=== PATIENT | male | born 1955 | race Caucasian/White ===

== ENCOUNTER 2017-05-30 12:09 | Emergency (ER) | payer OTHER ==
[2017-05-30 12:28] VITALS: RESP 18
[2017-05-30] MEDS ORDERED: Sodium Chloride 0.9% 1,000 ML IV ONE (13:33)
[2017-05-30] MEDS ORDERED: Sodium Chloride 0.9% 1,000 ML ONE (13:43)
--- NOTE | 2017-05-30 13:46 | RAD ---
HISTORY: COMPARISON: No prior. TECHNIQUE: Chest PA and lateral FINDINGS: LINES AND TUBES: None. LUNG AND PLEURA: The lungs are hyperinflated and there is peribronchial cuffing with streaky opacities in the lungs. No focal consolidation. HEART AND MEDIASTINUM: The heart is not enlarged. The hilar and mediastinal contours are within normal limits. SKELETAL STRUCTURES: The bony structures are within normal limits for the patient's age. VISUALIZED UPPER ABDOMEN: Normal. OTHER FINDINGS: None. IMPRESSION: Findings are most compatible with reactive small airway disease/ viral bronchitis/ atypical pneumonitis. No lobar pneumonia.
--- NOTE | 2017-05-30 14:02 | C.PDOC ---
History Of Present Illness 61 y/o male brought to ED by son with complaints of generalized weakness for 1 month. [place] arrived [place] this [place] ago [place] and states he has been weak when walking, had intermittent fever and a loss of 20lbs in 5-6 months. Patient also reports chronic swelling to legs although they are not swollen at this time. Patient denies chest pain, sob, nausea, vomiting, loc or any other complaints at this time. His appetite has been normal and he has no difficulty eating or drinking. Time Seen by Provider: 05/30/17 13:23 Chief Complaint (Nursing): Weakness/Neurological Deficit History Per: Patient History/Exam Limitations: no limitations Onset/Duration Of Symptoms: Days Current Symptoms Are (Timing): Still Present Activity At Onset Of Symptoms: Walking Past Medical History Reviewed: Historical Data, Nursing Documentation, Vital Signs Vital Signs: Last Vital Signs Temp 98.1 F 05/30/17 12:23 Pulse 69 05/30/17 12:23 Resp 18 05/30/17 12:23 BP 124/75 05/30/17 12:23 Pulse Ox 98 05/30/17 14:03 - Medical History PMH: No Chronic Diseases Surgical History: No Surg Hx Family History: States: No Known Family Hx - Social History Hx Alcohol Use: No Hx Substance Use: No - Immunization History Hx Tetanus Toxoid Vaccination: No Hx Influenza Vaccination: No Hx Pneumococcal Vaccination: No Review Of Systems Constitutional: Positive for: Fever, Weakness. Negative for: Chills Cardiovascular: Negative for: Chest Pain Respiratory: Negative for: Shortness of Breath Skin: Negative for: Rash Neurological: Negative for: Numbness, Headache, Dizziness Physical Exam - Physical Exam Appears: Non-toxic, Other (Older than age stated, thin appearing) Skin: Warm, Dry, No Rash Head: Atraumatic, Normacephalic Eye(s): bilateral: Normal Inspection Oral Mucosa: Moist Neck: Supple Chest: Symmetrical Cardiovascular: Rhythm Regular Respiratory: Rales (bilateral\), No Rhonchi, No Wheezing Gastrointestinal/Abdominal: Soft, No Tenderness, No Guarding, No Rebound Extremity: No Tenderness, No Swelling, Other (venous stasis pigmentation to lower extremities ) Pulses: Left Dorsalis Pedis: Normal, Right Dorsalis Pedis: Normal Neurological/Psych: Oriented x3, Normal Speech, Normal Motor, Normal Sensation ED Course And Treatment - Laboratory Results Result Diagrams: 05/30/17 13:56 05/30/17 13:56 Lab Interpretation: Abnormal (Thrombocytopenia with elevated LFTs, Alb and Ca low) ECG: Interpreted By Me ECG Rhythm: Sinus Rhythm ECG Interpretation: Normal O2 Sat by Pulse Oximetry: 98 (RA) Pulse Ox Interpretation: Normal - Radiology CXR: Viewed By Me, Read By Radiologist CXR Interpretation: Yes: Other (Chronic interstitial linear densities c/w atypical pneumonitis) Reevaluation Time: 15:04 Reassessment Condition: Improved (after IV fluids) Disposition Counseled Patient/Family Regarding: Studies Performed, Diagnosis, Need For Followup - Disposition Referrals: [facility] [Outside] Disposition: HOME/ ROUTINE Disposition Time: 15:05 Condition: STABLE Additional Instructions: Patient will need further work-up to evaluate chronic lung disease and elevated liver enzymes. Please contact the clinic as soon as possible. Instructions: Weakness (ED) Forms: [facility] (Spanish), General Discharge Instructions - Clinical Impression Clinical Impression: Weakness, Elevated liver enzymes, Interstitial lung disease - Scribe Statement The provider has reviewed the documentation as recorded by the Scribshaunna Cornejo All medical record entries made by the Lindaibshaunna were at my direction and personally dictated by me. I have reviewed the chart and agree that the record accurately reflects my personal performance of the history, physical exam, medical decision making, and the department course for this patient. I have also personally directed, reviewed, and agree with the discharge instructions and disposition.
[2017-05-30 14:04] LABS: BASO % 0.8 % (0.0-2.0); EOS # 0.2 K/uL (0.0-0.7); EOS % 3.4 % (0.0-4.0); HEMATOCRIT 37.2 % (35.0-51.0); LYMPH # 1.7 K/uL (1.0-4.3); LYMPH % 33.3 % (20.0-40.0); MEAN CELL VOLUME 84.3 fL (80.0-94.0); MEAN CORPUSCULAR HEMOGLOBIN 28.4 pg (27.0-31.0); MEAN CORPUSCULAR HGB CONC 33.7 g/dL (33.0-37.0); MEAN PLATELET VOLUME 9.7 fL (7.2-11.7); MONO # 0.5 K/uL (0.0-0.8); NRBC % 0.1 % (0.0-2.0); RED CELL DISTRIBUTION WIDTH 13.6 % (11.5-14.5); URINE BILIRUBIN NEGATIVE (NEGATIVE); URINE BLOOD 1+ (NEGATIVE); URINE COLOR Yellow (YELLOW); URINE GLUCOSE (UA) NORMAL (Normal); URINE KETONE NEGATIVE (NEGATIVE); URINE LEUKOCYTE ESTERASE NEG Leu/uL (Negative); URINE PROTEIN NEGATIVE (NEGATIVE); URINE UROBILINOGEN NORMAL mg/dL (0.2-1.0); WBC URINE < 1 /hpf (0-5); WHITE BLOOD COUNT 5.1 K/uL (4.8-10.8)
[2017-05-30 14:11] LABS: RBC URINE 4 /hpf (0-3)
[2017-05-30 14:17] LABS: ALKALINE PHOSPHATASE 114 U/L (38-126); ALT/SGPT 117 U/L (21-72); AST/SGOT 133 U/L (17-59); BILIRUBIN,TOTAL 0.9 mg/dL (0.2-1.3); BLOOD UREA NITROGEN 10 mg/dL (9-20); CALCIUM 7.7 mg/dl (8.6-10.4); CARBON DIOXIDE 27 mmol/L (22-30); CHLORIDE 102 mmol/L (98-107); GFR AFRICAN-AMERICAN > 60; GLUCOSE,RANDOM 66 mg/dL (75-110); MAGNESIUM 1.8 mg/dL (1.6-2.3); POTASSIUM 3.6 mmol/L (3.6-5.2); SODIUM 131 mmol/L (132-148); TOTAL PROTEIN 8.1 g/dL (6.3-8.3)
[2017-05-30 14:28] LABS: ALB/GLOB RATIO 0.7 (1.0-2.1)
[2017-05-30 15:17] VITALS: BP 149/75; PULSE 65; TEMP 97.9; O2SAT 96
--- NOTE | 2017-05-31 21:51 | CARD ---
APPROVED REPORT EKG Measurement Heart [id number] <Conclusion> Normal sinus rhythm Normal ECG
== END 2017-05-30 15:15 | disposition home or self-care (01) ==
LOC: C.ER 12:09
DX: R53.1 Weakness (principal); R74.8 Abnormal levels of other serum enzymes; J84.9 Interstitial pulmonary disease, unspecified
CPT/HCPCS: 71020; 80053; 81001; 83735; 83880; 85025; 93005; 96360; 99285; J7040

== ENCOUNTER 2017-09-10 06:49 | Day surgery (SDC) | payer OTHER ==
[2017-09-10 07:09] VITALS: BMI 23.6
[2017-09-10] MEDS ORDERED: Propofol 10 mg/ml Inj (20 ML) ONE (08:03)
[2017-09-10] MEDS ORDERED: Lactated Ringer's 500 ML IV SCH (08:15)
[2017-09-10] MEDS ORDERED: Lidocaine Hydrochloride 5 ML INJ ONE (08:16)
[2017-09-10] MEDS ORDERED: Simethicone 40 mg/0.6 ml Liquid (30 ml) ONE (08:31)
[2017-09-10 09:17] VITALS: RESP 14; TEMP 97; O2SAT 100
[2017-09-10 09:19] VITALS: BP 120/77; PULSE 60
== END 2017-09-10 11:20 | disposition home or self-care (01) ==
LOC: C.ENDO 06:49
PROVIDERS: ATTEND Internal Medicine
DX: B18.2 Chronic viral hepatitis C (principal); R63.4 Abnormal weight loss; R76.11 Nonspecific reaction to tuberculin skin test without active tuberculosis; I85.00 Esophageal varices without bleeding; K25.9 Gastric ulcer, unspecified as acute or chronic, without hemorrhage or perforation; B96.81 Helicobacter pylori [H. pylori] as the cause of diseases classified elsewhere; K29.60 Other gastritis without bleeding; K55.20 Angiodysplasia of colon without hemorrhage; D12.2 Benign neoplasm of ascending colon; D12.0 Benign neoplasm of cecum; D12.4 Benign neoplasm of descending colon; D12.3 Benign neoplasm of transverse colon
CPT/HCPCS: 43239; 45388; 88305; 88313; 88342; J2704; J3010; J7120

== ENCOUNTER 2017-10-16 05:07 | Inpatient (IN) | payer OTHER ==
[2017-10-16 05:07] VITALS: BMI 23.6
[2017-10-16] MEDS ORDERED: Sodium Chloride 0.9% 1,000 ML IV ONE (05:35)
[2017-10-16] MEDS ORDERED: HYDROmorphone 1 mg/ml ISec IVP STA (05:35)
--- NOTE | 2017-10-16 05:37 | C.PDOC ---
History Of Present Illness <Marcie Hickman - Last Filed: 10/16/17 10:53> <Skyla Lara - Last Filed: 10/17/17 02:00> 62 y/o male with PMHx significant for latent tuberculosis, GERD, and microcytic anemia, presents with worsening epigastric pain over the past several days. States the pain has been much worse over past 24 hours. Denies associated vomiting or diarrhea. Feels chills and subjective fever. States he is not tolerating anything PO. (Skyla Lara) <Marcie Hickman - Last Filed: 10/16/17 10:53> History Per: Patient History/Exam Limitations: no limitations Onset/Duration Of Symptoms: Days Current Symptoms Are (Timing): Still Present <Skyla Lara - Last Filed: 10/17/17 02:00> Time Seen by Provider: 10/16/17 05:34 Chief Complaint (Nursing): Chest Pain Past Medical History Reviewed: Historical Data, Nursing Documentation, Vital Signs - Medical History PMH: GERD, Hepatitis (C) Denies: Colonic Polyps, Fractures, Seizures, TIA Other PMH: Latent tuberculosis Surgical History: No Surg Hx Denies: Endoscopy Family History: States: No Known Family Hx - Social History Hx Alcohol Use: No Hx Substance Use: No - Immunization History Hx Tetanus Toxoid Vaccination: No Hx Influenza Vaccination: No Hx Pneumococcal Vaccination: No <Skyla Lara - Last Filed: 10/17/17 02:00> Vital Signs: Last Vital Signs Temp 98 F 10/16/17 23:45 Pulse 67 10/16/17 23:45 Resp 20 10/16/17 23:45 BP 121/66 10/16/17 23:45 Pulse Ox 97 10/16/17 23:45 Review Of Systems Except As Marked, All Systems Reviewed And Found Negative. Constitutional: Positive for: Fever, Chills, Other (not tolerating solids or liquids) Gastrointestinal: Positive for: Abdominal Pain. Negative for: Vomiting, Diarrhea <Skyla Lara - Last Filed: 10/17/17 02:00> Physical Exam - Physical Exam Appears: In Acute Distress (moderate distress secondary to pain), Other ( Moaning in pain, writhing on the stretcher) Skin: Normal Color, Warm, Dry Head: Atraumatic, Normacephalic Eye(s): bilateral: Normal Inspection, PERRL, EOMI Nose: Normal Oral Mucosa: Moist Neck: Normal ROM, Supple Chest: Symmetrical Cardiovascular: Rhythm Regular, No Murmur Respiratory: Decreased Breath Sounds Gastrointestinal/Abdominal: Tenderness (cough tenderness), Guarding ( Involuntary guarding throughout abdomen), Rebound, Other (Rigid) Back: No CVA Tenderness, No Vertebral Tenderness Extremity: Bilateral: Atraumatic, Normal Color And Temperature Neurological/Psych: Oriented x3, Normal Speech <Skyla Lara - Last Filed: 10/17/17 02:00> ED Course And Treatment - Laboratory Results Result Diagrams: 10/16/17 05:41 10/16/17 05:41 <Marcie Hickman - Last Filed: 10/16/17 10:53> - Laboratory Results Result Diagrams: 10/16/17 05:41 10/16/17 05:41 ECG: Interpreted By Me, Viewed By Me ECG Rhythm: Sinus Rhythm (at 82 bpm, no ectopy, no acute ischemic changes, intervals all are wnl) O2 Sat by Pulse Oximetry: 98 (RA) Pulse Ox Interpretation: Normal <Skyla Lara - Last Filed: 10/17/17 02:00> Medical Decision Making <Marcie Hickman - Last Filed: 10/16/17 10:53> <Skyla Lara - Last Filed: 10/17/17 02:00> Medical Decision Making: Impression: Acute peritonitis Plan: * Routine labs * EKG * CT abd/pelvis * Chest X-ray * IVF hydration * Dilaudid 1 mg IV * Surgical consult (Skyla Lara) Disposition Discussed With : Trevor Harmon Doctor Will See Patient In The: Hospital Counseled Patient/Family Regarding: Studies Performed, Diagnosis - Disposition Disposition Time: 10:53 <Marcie Hickman - Last Filed: 10/16/17 10:53> <Skyla Lara - Last Filed: 10/17/17 02:00> - Disposition Disposition: HOSPITALIZED Condition: GUARDED - Clinical Impression Clinical Impression: Cholecystitis, Cirrhosis <Marcie Hickman - Last Filed: 10/16/17 10:53> - Scribe Statement The provider has reviewed the documentation as recorded by the Scribe (Capri Mendoza) <Skyla Lara - Last Filed: 10/17/17 02:00> - Scribe Statement Provider Attestation: All medical record entries made by the Scribe were at my direction and personally dictated by me. I have reviewed the chart and agree that the record accurately reflects my personal performance of the history, physical exam, medical decision making, and the department course for this patient. I have also personally directed, reviewed, and agree with the discharge instructions and disposition. (Skyla Lara) Addendum <Marcie Hickman - Last Filed: 10/16/17 10:53> <Skyla Lara - Last Filed: 10/17/17 02:00> Addendum: 10/16/17 07:34 Patient endorsed to me by Dr. Lara, patient with recent dx of hep C and remote TB? On medications for TB. Patient presents with epgastric and URQ pain. Had recent CT abdomen which showed liver cirrhosis. Patient medicated by overnight team, feeling better now. Low grade fever, no elevated WBC count, will do US to r/o galls bladder dx. (Marcie Hickman) Decision To Admit - Pt Status Changed To: Hospital Disposition Of: Inpatient - Admit Certification Admit to Inpatient:: After my assessment, the patient will require hospitalization for at least two midnights. This is because of the severity of symptoms shown, intensity of services needed, and/or the medical risk in this patient being treated as an outpatient. - InPatient: Physician Admission Certification: I certify that this patient requires 2 or more midnights of care for the following reason:: patient with acute cholecistitis, NV, pain, not tolerating PO - . Bed Request Type: Regular <Marcie Hickman - Last Filed: 10/16/17 10:53> <Skyla Lara - Last Filed: 10/17/17 02:00> - . Patient Diagnosis: Cholecystitis, Cirrhosis
[2017-10-16 05:44] LABS: BASO % 0.7 % (0.0-2.0); EOS # 0.1 K/uL (0.0-0.7); EOS % 0.8 % (0.0-4.0); HEMOGLOBIN 12.4 g/dL (12.0-18.0); MEAN CELL VOLUME 82.7 fL (80.0-94.0); MEAN CORPUSCULAR HEMOGLOBIN 28.1 pg (27.0-31.0); MEAN CORPUSCULAR HGB CONC 33.9 g/dL (33.0-37.0); MEAN PLATELET VOLUME 9.5 fL (7.2-11.7); MONO # 0.4 K/uL (0.0-0.8); MONO % 6.3 % (0.0-10.0); NEUT # 5.2 K/uL (1.8-7.0); NEUT % 77.2 % (50.0-75.0); RBC 4.43 Mil/uL (4.40-5.90); RED CELL DISTRIBUTION WIDTH 14.6 % (11.5-14.5); WHITE BLOOD COUNT 6.7 K/uL (4.8-10.8)
[2017-10-16] MEDS ORDERED: Sodium Chloride 0.9% 1,000 ML ONE (05:57)
[2017-10-16 05:59] LABS: ALB/GLOB RATIO 0.8 (1.0-2.1); ALBUMIN 3.6 g/dL (3.5-5.0); ALT/SGPT 88 U/L (21-72); AST/SGOT 132 U/L (17-59); BLOOD UREA NITROGEN 8 mg/dL (9-20); CALCIUM 8.5 mg/dl (8.6-10.4); GFR AFRICAN-AMERICAN > 60; GFR NON-AFRICAN AMERICAN > 60; LIPASE 173 U/L (23-300)
[2017-10-16] MEDS ORDERED: Iodixanol 320 MG/ML 100 ML BOTTLE IV ONE (07:34)
--- NOTE | 2017-10-16 10:00 | RAD ---
Chest x-ray single frontal view History: Sepsis. Comparison: 05/30/2017 Findings: Mild venous congestion. Left hilar prominence. Biapical pleural thickening. Tortuous aorta. Degenerative changes in the spine and shoulders. Impression: Mild venous congestion. Left hilar prominence. Biapical pleural thickening. Tortuous aorta.
[2017-10-16 10:26] LABS: URINE BILIRUBIN NEGATIVE (NEGATIVE); URINE BLOOD 1+ (NEGATIVE); URINE CLARITY Clear (Clear); URINE COLOR Yellow (YELLOW); URINE GLUCOSE (UA) NORMAL (Normal); URINE LEUKOCYTE ESTERASE NEG Leu/uL (Negative); URINE PROTEIN NEGATIVE (NEGATIVE); URINE UROBILINOGEN NORMAL mg/dL (0.2-1.0)
--- NOTE | 2017-10-16 10:35 | US ---
Right upper quadrant abdominal ultrasound History: Right upper quadrant abdominal pain. Comparison: CT dated 09/12/2017. Technique: Real-time sonography was performed through the right upper quadrant of the abdomen. Findings: Liver: 14.6 centimeters in length. Increased echogenicity of the hepatic parenchymal cortex suggestive for fatty infiltration versus hepatic parenchymal disease. Nodular and cirrhotic contour of the liver. Gallbladder: Cholelithiasis. Gallbladder wall thickening measuring up to 6.5 millimeters. Associated gallbladder wall edema. Negative sonographic Abreu's sign. Common bile duct measures up to 3.6 millimeters. Intrahepatic biliary ductal dilatation is noted. Limited visualization of the pancreas. Visualized aorta and IVC are preserved. Right kidney: 10.2 x 5.5 x 6.2 centimeters. No calculi or hydronephrosis. Impression: 1. Cholelithiasis with associated gallbladder wall thickening measuring up to 6.5 millimeters as well as gallbladder wall edema. Gallbladder calculus measures up to 1.9 centimeters. These findings may represent an acute cholecystitis. Clinical correlation and or correlation with nuclear medicine study may be helpful if clinically indicated. 2. Nodular and cirrhotic contour of the liver with associated increased echogenicity of the hepatic parenchymal cortex suggestive for fatty infiltration versus hepatic parenchymal disease. Clinical correlation. Previously noted 1 centimeter lesion in the left hepatic lobe on CT scan was not well imaged on the current study. 3. Limited visualization of the pancreas.
[2017-10-16] MEDS ORDERED: Pantoprazole 40 mg EC Tab PO SCH (14:15)
--- NOTE | 2017-10-16 14:34 | CP.PCM.HP ---
<Bisi Jackson - Last Filed: 10/16/17 14:44> History of Present Illness - History of Present Illness History of Present Illness: HPI: Patient is a 62 year old male with a past medical history of HCV with cirrhosis, and tuberculosis, who presents to the ED complaining of abdominal pain. Patient says this started last night and describes it as a constant, crampy, 10/10 pain that is generalized but worse over the right upper quadrant and flank area. Patient says he has not taken any medication for this pain and nothing seems to make it better or worse. Patient also notes feeling like he has a fever although he did not take his temperature and also complains of a burning sensation in his epigastric/low middle chest area. He also admits to generalized body aches that have been going on for months. He denies chills, night sweats, headache, sore throat, bitter taste in mouth, chest pain, SOB, palpitations, cough, n/v/d/c, dysuria, urinary frequency, calf pain, lower extremity swelling, sick contacts, recent travel, and changes in weight. PMD: [facility]: Dr. Ceballos PMH: HCV with cirrhosis, tuberculosis Meds: Vitamin B6 25 mg, Isoniazid 300 mg, Meloxicam 7.5 mg [place]eriges: NKDA PSH: denies FH: denies SH: denies tobacco, alcohol, and drug use Present on Admission - Present on Admission Any Indicators Present on Admission: No Review of Systems - Review of Systems All systems: reviewed and no additional remarkable complaints except (as per HPI ) Past Patient History - Past Medical History & Family History Past Medical History?: Yes - Past Social History Smoking Status: Never Smoked - CARDIAC Hx Heart Attack: No - PULMONARY Hx Respiratory Disorders: Yes Hx Tuberculosis: Yes - NEUROLOGICAL Hx Seizures: No Hx Transient Ischemic Attacks (TIA): No - HEMATOLOGICAL/ONCOLOGICAL Hx Blood Disorders: Yes Hx Hepatitis C: Yes - MUSCULOSKELETAL/RHEUMATOLOGICAL Hx Fractures: No - GASTROINTESTINAL Hx Gastrointestinal Disorders: No - PSYCHIATRIC Hx Substance Use: No - SURGICAL HISTORY Hx Surgeries: No - ANESTHESIA Hx Anesthesia Reactions: No Hx Malignant Hyperthermia: No Meds Allergies/Adverse Reactions: Allergies Allergy/AdvReac Type Severity Reaction Status Date / Time No Known Allergies Allergy Verified 10/16/17 05:22 Physical Exam - Constitutional Appears: Non-toxic, No Acute Distress - Head Exam Head Exam: ATRAUMATIC, NORMAL INSPECTION, NORMOCEPHALIC - Eye Exam Eye Exam: EOMI, PERRL, Scleral icterus (mild ) - ENT Exam ENT Exam: Mucous Membranes Moist - Neck Exam Neck exam: Positive for: Normal Inspection - Respiratory Exam Respiratory Exam: Clear to Auscultation Bilateral, NORMAL BREATHING PATTERN - Cardiovascular Exam Cardiovascular Exam: RRR, +S1, +S2. absent: Bradycardia, Tachycardia, Systolic Murmur - GI/Abdominal Exam GI & Abdominal Exam: Firm, Normal Bowel Sounds, Soft, Tenderness (RUQ ). absent : Distended - Extremities Exam Extremities exam: Positive for: normal inspection. Negative for: calf tenderness, pedal edema - Back Exam Back exam: NORMAL INSPECTION - Neurological Exam Neurological exam: Alert, Oriented x3 - Psychiatric Exam Psychiatric exam: Normal Affect, Normal Mood - Skin Skin Exam: Dry, Intact, Normal Color, Warm Results - Vital Signs Recent Vital Signs: Last Vital Signs Temp 98.3 F 10/16/17 13:26 Pulse 73 10/16/17 13:26 Resp 20 10/16/17 13:26 BP 114/71 10/16/17 13:26 Pulse Ox 97 10/16/17 13:26 - Labs Result Diagrams: 10/16/17 05:41 10/16/17 05:41 Labs: Laboratory Results - last 24 hr 10/16/17 10/16/17 10/16/17 05:15 05:41 05:41 WBC 6.7 RBC 4.43 Hgb 12.4 Hct 36.6 MCV 82.7 MCH 28.1 MCHC 33.9 RDW 14.6 H Plt Count 56 L D MPV 9.5 Neut % (Auto) 77.2 H Lymph % (Auto) 15.0 L Nicholas % (Auto) 6.3 Eos % (Auto) 0.8 Baso % (Auto) 0.7 Neut # (Auto) 5.2 Lymph # (Auto) 1.0 Nicholas # (Auto) 0.4 Eos # (Auto) 0.1 Baso # (Auto) 0.0 Sodium 140 Potassium 3.8 Chloride 103 Carbon Dioxide 26 Anion Gap 15 BUN 8 L Creatinine 0.6 L Est GFR ( Amer) > 60 Est GFR (Non-Af Amer) > 60 POC Glucose (mg/dL) 104 Random Glucose 110 Lactic Acid Calcium 8.5 L Total Bilirubin 1.6 H AST 132 H ALT 88 H D Alkaline Phosphatase 116 Total Protein 8.2 Albumin 3.6 Globulin 4.6 H Albumin/Globulin Ratio 0.8 L Lipase 173 Urine Color Urine Clarity Urine pH Ur Specific [place] Urine Protein Urine Glucose (UA) Urine Ketones Urine Blood Urine Nitrate Urine Bilirubin Urine Urobilinogen Ur Leukocyte Esterase Urine WBC (Auto) Urine RBC (Auto) 10/16/17 10/16/17 05:52 10:15 WBC RBC Hgb Hct MCV MCH MCHC RDW Plt Count MPV Neut % (Auto) Lymph % (Auto) Nicholas % (Auto) Eos % (Auto) Baso % (Auto) Neut # (Auto) Lymph # (Auto) Nicholas # (Auto) Eos # (Auto) Baso # (Auto) Sodium Potassium Chloride Carbon Dioxide Anion Gap BUN Creatinine Est GFR ( Amer) Est GFR (Non-Af Amer) POC Glucose (mg/dL) Random Glucose Lactic Acid 0.8 Calcium Total Bilirubin AST ALT Alkaline Phosphatase Total Protein Albumin Globulin Albumin/Globulin Ratio Lipase Urine Color Yellow Urine Clarity Clear Urine pH 5.0 Ur Specific [place] 1.010 Urine Protein Negative Urine Glucose (UA) Normal Urine Ketones Negative Urine Blood 1+ H Urine Nitrate Negative Urine Bilirubin Negative Urine Urobilinogen Normal Ur Leukocyte Esterase Neg Urine WBC (Auto) 1 Urine RBC (Auto) < 1 Assessment & Plan - Assessment and Plan (Free Text) Plan: Abdominal pain * Afebrile, no leukocytosis * Transaminitis - AST 132, ALT * Tbili 1.6 * History of H. Pylori as seen on biopsy done by Dr. Ceballos on 09/10 - patient completed treatment for this * Abdominal US (10/16): 1. Cholelithiasis with associated gallbladder wall thickening measuring up to 6.5 millimeters as well as gallbladder wall edema. Gallbladder calculus measures up to 1.9 centimeters. These findings may represent an acute cholecystitis. Clinical correlation and or correlation with nuclear medicine study may be helpful if clinically indicated. 2. Nodular and cirrhotic contour of the liver with associated increased echogenicity of the hepatic parenchymal cortex suggestive for fatty infiltration versus hepatic parenchymal disease. Clinical correlation. Previously noted 1 centimeter lesion in the left hepatic lobe on CT scan was not well imaged on the current study. 3. Limited visualization of the pancreas. * CXR: Mild venous congestion. Left hilar prominence. Biapical pleural thickening. Tortuous aorta. * GI consulted (Dr. Ceballos), help appreciated * f/u CT abdomen * f/u Flu * Zosyn 3.375 g IV Q6 * Protonix 40 mg daily * Zofran 4 mg PRN * LR @ 120 Thrombocytopenia * Monitor with AM labs History of TB * Continue Isoniazid 300 mg and pyridoxine 25 mg * f/u B6 level History of HCV * Monitor LFTs Prophylaxis * Heparin * Protonix <Trevor Harmon H - Last Filed: 10/17/17 09:07> Results - Vital Signs Recent Vital Signs: Last Vital Signs Temp 98.3 F 10/17/17 07:39 Pulse 65 10/17/17 07:39 Resp 20 10/17/17 07:39 BP 119/72 10/17/17 07:39 Pulse Ox 98 10/17/17 07:39 - Labs Result Diagrams: 10/17/17 08:24 10/16/17 05:41 Labs: Laboratory Results - last 24 hr 10/16/17 10/16/17 10/16/17 10:15 14:05 19:19 WBC RBC Hgb Hct MCV MCH MCHC RDW Plt Count MPV Neut % (Auto) Lymph % (Auto) Nicholas % (Auto) Eos % (Auto) Baso % (Auto) Neut # (Auto) Lymph # (Auto) Nicholas # (Auto) Eos # (Auto) Baso # (Auto) PT 15.7 H INR 1.4 Urine Color Yellow Urine Clarity Clear Urine pH 5.0 Ur Specific [place] 1.010 Urine Protein Negative Urine Glucose (UA) Normal Urine Ketones Negative Urine Blood 1+ H Urine Nitrate Negative Urine Bilirubin Negative Urine Urobilinogen Normal Ur Leukocyte Esterase Neg Urine WBC (Auto) 1 Urine RBC (Auto) < 1 Influenza Typ A,B (EIA) Negative for flu a/b 10/17/17 08:24 WBC 5.3 RBC 4.20 L Hgb 11.7 L Hct 34.6 L MCV 82.4 MCH 27.9 MCHC 33.9 RDW 14.7 H Plt Count 56 L MPV 9.9 Neut % (Auto) 50.1 Lymph % (Auto) 37.2 Nicholas % (Auto) 8.4 Eos % (Auto) 3.6 Baso % (Auto) 0.7 Neut # (Auto) 2.6 Lymph # (Auto) 2.0 Nicholas # (Auto) 0.4 Eos # (Auto) 0.2 Baso # (Auto) 0.0 PT INR Urine Color Urine Clarity Urine pH Ur Specific [place] Urine Protein Urine Glucose (UA) Urine Ketones Urine Blood Urine Nitrate Urine Bilirubin Urine Urobilinogen Ur Leukocyte Esterase Urine WBC (Auto) Urine RBC (Auto) Influenza Typ A,B (EIA) Attending/Attestation - Attestation I have personally seen and examined this patient.: Yes I have fully participated in the care of the patient.: Yes I have reviewed all pertinent clinical information: Yes Notes (Text): Medical attending: Patient was seen and examined by me. Agree with the above note by the resident The patient's son was at bedside and helped with the history and translation As mentioned in the above note by the resident the patient - the patient has had RUQ pain. An ultrasound was done and shows concerning findings for at least cholecystitis. Patient will be started on IV Zosyn as well as slow IVF for the time being. He will also be getting a CT scan as well of the abdomen and pelvis. The patient will need a GI and surgical evaluation. The patient has a history of Hepatitis C as well as being on Isoniazid for ongoing latent TB. I believe he has been on the iso for about 2 or 3 months now. Both the AST and also ALT are elevated. Per my discussion with medical staff we will notify ID to see if the isoniazid can be changed to another medication. He is also reporting generalized body aches and so will also check for the influenza as well. We should also check B12 levels since even though he is on supplemental medication for the isoniazid, a deficiency can also contribute to body pain and fatigue as well. thank you Trevor Harmon
[2017-10-16] MEDS: Lactated Ringer's 1,000 ML IV SCH ×2 (14:56→22:19)
[2017-10-16] MEDS: Piperacill/Tazo 3.375gm in Dex 3.375 GM/50 ML BAG IVPB SCH ×2 (15:43→21:41)
[2017-10-16] MEDS ORDERED: Iohexol 300 100 ML IJ ONE (16:29)
--- NOTE | 2017-10-16 17:40 | CT ---
PROCEDURE: CT Abdomen and Pelvis with contrast HISTORY: abdominal pain COMPARISON: Comparison is made to the previous study dated 09/12/2017 TECHNIQUE: Contrast dose: 100 mL Omnipaque 300 Radiation dose: Total exam DLP = 725.19 mGy-cm. This CT exam was performed using one or more of the following dose reduction techniques: Automated exposure control, adjustment of the mA and/or kV according to patient size, and/or use of iterative reconstruction technique. FINDINGS: LOWER THORAX: Bibasilar atelectasis and possible trace effusion noted new compared to the previous exam. LIVER: Cirrhotic manifestation of the liver is again noted. Again seen is 1.2 centimeter low-attenuation lesion at the anterior aspect of the left liver lobe. GALLBLADDER AND BILE DUCTS: Distended gallbladder contains gallstones is noted. Diffuse gallbladder wall thickening. There is a trace pericholecystic fluid noted. No evidence of biliary obstruction PANCREAS: Unremarkable. No gross lesion or ductal dilatation. SPLEEN: Splenomegaly is again noted. Findings likely related to portal hypertension. ADRENALS: Unremarkable. No mass. KIDNEYS AND URETERS: Unremarkable. No hydronephrosis. No solid mass. VASCULATURE: Unremarkable. No aortic aneurysm. BOWEL: Unremarkable. No obstruction. No gross mural thickening. APPENDIX: No evidence of appendicitis PERITONEUM: No evidence of significant ascites. No evidence of free air. LYMPH NODES: Unremarkable. No enlarged lymph nodes. BLADDER: [id number] circumferential urinary bladder wall thickening. REPRODUCTIVE: Prostate and seminal vesicles are mildly enlarged. BONES: No acute fracture. OTHER FINDINGS: None. IMPRESSION: Distended gallbladder contains gallstones and surrounding with small pericholecystic fluid demonstrates diffuse wall thickening. Correlate clinically for cholecystitis. No evidence of biliary obstruction. Cirrhotic manifestation of the liver again noted. The portal vein is patent. Splenomegaly likely related to portal hypertension. Bibasilar atelectasis and possible trace pleural effusion.
[2017-10-16 19:35] LABS: INR 1.4; PROTHROMBIN TIME 15.7 SECONDS (9.7-12.2)
[2017-10-17] MEDS: Piperacill/Tazo 3.375gm in Dex 3.375 GM/50 ML BAG IVPB SCH ×4 (03:24→20:20)
[2017-10-17] MEDS: Lactated Ringer's 1,000 ML IV SCH ×4 (06:20→22:38)
[2017-10-17] MEDS: Pantoprazole 40 mg EC Tab PO SCH ×2 (07:34→17:30)
[2017-10-17 08:36] LABS: BASO % 0.7 % (0.0-2.0); EOS # 0.2 K/uL (0.0-0.7); EOS % 3.6 % (0.0-4.0); HEMOGLOBIN 11.7 g/dL (12.0-18.0); LYMPH % 37.2 % (20.0-40.0); MEAN CELL VOLUME 82.4 fL (80.0-94.0); MEAN CORPUSCULAR HEMOGLOBIN 27.9 pg (27.0-31.0); MEAN CORPUSCULAR HGB CONC 33.9 g/dL (33.0-37.0); MEAN PLATELET VOLUME 9.9 fL (7.2-11.7); MONO # 0.4 K/uL (0.0-0.8); MONO % 8.4 % (0.0-10.0); NEUT # 2.6 K/uL (1.8-7.0); NEUT % 50.1 % (50.0-75.0); NRBC % 0.1 % (0.0-2.0); RBC 4.2 Mil/uL (4.40-5.90); RED CELL DISTRIBUTION WIDTH 14.7 % (11.5-14.5); WHITE BLOOD COUNT 5.3 K/uL (4.8-10.8)
[2017-10-17 09:08] LABS: ALB/GLOB RATIO 0.8 (1.0-2.1); ALBUMIN 3.1 g/dL (3.5-5.0); ALT/SGPT 75 U/L (21-72); AST/SGOT 124 U/L (17-59); BLOOD UREA NITROGEN 7 mg/dL (9-20); CALCIUM 8.2 mg/dl (8.6-10.4); GFR AFRICAN-AMERICAN > 60; GFR NON-AFRICAN AMERICAN > 60
--- NOTE | 2017-10-17 09:45 | CP.PCM.CON ---
<JacquelinbullKevin adames - Last Filed: 10/17/17 09:47> History of Present Illness - History of Present Illness History of Present Illness: PGY5 GI Fellow Consult Note Patient is a 62yo Malagasy, Mohawk-speaking male with PMHx significant for decompensated HCV cirrhosis (GT 3a, VL 733,151 in June 2017) complicated by esophageal varices s/p band ligation therapy in August 2017, latent tuberculosis on Isoniazid/Pyridoxine, untreated H pylori gastritis, PUD who presented to the ED with complaint of abdominal pain. 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 The patient states he developed epigastric burning pain which radiates to his chest approximately two months ago and steadily worsened. Moreover, he mentions more frequent/constant pain following endoscopy with esophageal variceal ligation last month. He has not been on PPI therapy and has been using Mobic at home regularly. Only on examination today did he recognize RUQ abdominal pain and U/S shows cholelithiasis with cholecystitis. Lastly, he is on therapy with Isoniazid and Pyridoxine for latent TB since July 2017. He admits to fever at home and ongoing weight loss with about 20 lbs in the last year. Denies any change in bowel habits, nausea, vomiting. 12 system ROS performed and negative except where stated PMHx: See HPI PSHx: Discussed with patient and he denies any prior surgical history FHx: Discussed with patient and he denies any significant family history Social: Denies tobacco, EtOH or illicit drug use Endo: EGD/Colonoscopy 08/2017 gastric ulcer, H pylori positive erosive gastritis (HP untreated to date), large esophageal varices; 7 polyps (3 tubular adenomas), AVMs, internal hemorrhoids Past Patient History - Past Medical History & Family History Past Medical History?: Yes - Past Social History Smoking Status: Never Smoked - CARDIAC Hx Heart Attack: No - PULMONARY Hx Respiratory Disorders: Yes Hx Tuberculosis: Yes - NEUROLOGICAL Hx Seizures: No Hx Transient Ischemic Attacks (TIA): No - HEMATOLOGICAL/ONCOLOGICAL Hx Blood Disorders: Yes Hx Hepatitis C: Yes - MUSCULOSKELETAL/RHEUMATOLOGICAL Hx Fractures: No - GASTROINTESTINAL Hx Gastrointestinal Disorders: No - PSYCHIATRIC Hx Substance Use: No - SURGICAL HISTORY Hx Surgeries: No - ANESTHESIA Hx Anesthesia Reactions: No Hx Malignant Hyperthermia: No Meds Allergies/Adverse Reactions: Allergies Allergy/AdvReac Type Severity Reaction Status Date / Time No Known Allergies Allergy Verified 10/16/17 05:22 - Medications Medications: Current Medications Acetaminophen (Tylenol 325mg Tab) 650 mg PO Q6 PRN PRN Reason: Pain, moderate (4-7) Last Admin: 10/17/17 07:47 Dose: 650 mg Heparin Sodium (Porcine) (Heparin) 5,000 units SC Q12 [facility] Last Admin: 10/16/17 21:41 Dose: 5,000 units Lactated Ringer's (Lactated Ringer's) 1,000 mls @ 120 mls/hr IV .Q8H20M [facility] Last Admin: 10/17/17 06:20 Dose: 120 mls/hr Piperacillin Sod/Tazobactam Sod (Zosyn 3.375 Gm Iv Premix) 3.375 gm in 50 mls @ 200 mls/hr IVPB Q6H [facility] PRN Reason: Protocol Last Admin: 10/17/17 08:47 Dose: 200 mls/hr Isoniazid (Niazid) 300 mg PO DAILY [facility] PRN Reason: Protocol Ondansetron HCl (Zofran Inj) 4 mg IVP Q6 PRN PRN Reason: Nausea/Vomiting Pantoprazole Sodium (Protonix Ec Tab) 40 mg PO BIDAC [facility] Last Admin: 10/17/17 07:34 Dose: 40 mg Pyridoxine HCl (Vitamin B6) 25 mg PO DAILY [facility] Physical Exam - Constitutional Appears: Non-toxic, No Acute Distress - Eye Exam Eye Exam: EOMI, PERRL - ENT Exam ENT Exam: Mucous Membranes Dry - Respiratory Exam Respiratory Exam: Clear to Auscultation Bilateral. absent: Rales, Rhonchi, Wheezes - Cardiovascular Exam Cardiovascular Exam: RRR, +S1, +S2 - GI/Abdominal Exam GI & Abdominal Exam: Normal Bowel Sounds, Soft, Tenderness (RUQ, epigastric, LUQ ). absent: Distended, Firm, Guarding, Organomegaly, Rigid - Extremities Exam Extremities exam: Positive for: normal inspection. Negative for: pedal edema - Neurological Exam Neurological exam: Alert, Oriented x3 - Psychiatric Exam Psychiatric exam: Normal Affect, Normal Mood - Skin Skin Exam: Dry, Warm Results - Vital Signs Recent Vital Signs: Last Vital Signs Temp 98.3 F 10/17/17 07:39 Pulse 65 10/17/17 07:39 Resp 20 10/17/17 07:39 BP 119/72 10/17/17 07:39 Pulse Ox 98 10/17/17 07:39 - Labs Result Diagrams: 10/17/17 08:24 10/17/17 08:24 Labs: Laboratory Results - last 24 hr 10/16/17 10/16/17 10/16/17 10:15 14:05 19:19 WBC RBC Hgb Hct MCV MCH MCHC RDW Plt Count MPV Neut % (Auto) Lymph % (Auto) Mclean % (Auto) Eos % (Auto) Baso % (Auto) Neut # (Auto) Lymph # (Auto) Mclean # (Auto) Eos # (Auto) Baso # (Auto) PT 15.7 H INR 1.4 Sodium Potassium Chloride Carbon Dioxide Anion Gap BUN Creatinine Est GFR ( Amer) Est GFR (Non-Af Amer) Random Glucose Calcium Total Bilirubin AST ALT Alkaline Phosphatase Total Protein Albumin Globulin Albumin/Globulin Ratio Urine Color Yellow Urine Clarity Clear Urine pH 5.0 Ur Specific [place] 1.010 Urine Protein Negative Urine Glucose (UA) Normal Urine Ketones Negative Urine Blood 1+ H Urine Nitrate Negative Urine Bilirubin Negative Urine Urobilinogen Normal Ur Leukocyte Esterase Neg Urine WBC (Auto) 1 Urine RBC (Auto) < 1 Influenza Typ A,B (EIA) Negative for flu a/b 10/17/17 10/17/17 08:24 08:24 WBC 5.3 RBC 4.20 L Hgb 11.7 L Hct 34.6 L MCV 82.4 MCH 27.9 MCHC 33.9 RDW 14.7 H Plt Count 56 L MPV 9.9 Neut % (Auto) 50.1 Lymph % (Auto) 37.2 [place] % (Auto) 8.4 Eos % (Auto) 3.6 Baso % (Auto) 0.7 Neut # (Auto) 2.6 Lymph # (Auto) 2.0 [place] # (Auto) 0.4 Eos # (Auto) 0.2 Baso # (Auto) 0.0 PT INR Sodium 138 Potassium 3.6 Chloride 100 Carbon Dioxide 28 Anion Gap 14 BUN 7 L Creatinine 0.7 L Est GFR ( Amer) > 60 Est GFR (Non-Af Amer) > 60 Random Glucose 74 L Calcium 8.2 L Total Bilirubin 1.9 H AST 124 H ALT 75 H Alkaline Phosphatase 76 Total Protein 7.1 Albumin 3.1 L Globulin 4.0 H Albumin/Globulin Ratio 0.8 L Urine Color Urine Clarity Urine pH Ur Specific [place] Urine Protein Urine Glucose (UA) Urine Ketones Urine Blood Urine Nitrate Urine Bilirubin Urine Urobilinogen Ur Leukocyte Esterase Urine WBC (Auto) Urine RBC (Auto) Influenza Typ A,B (EIA) Assessment & Plan - Assessment and Plan (Free Text) Assessment: Patient is a 62yo Malagasy, Mohawk-speaking male with PMHx significant for decompensated HCV cirrhosis (GT 3a, VL 733,151 in June 2017) complicated by esophageal varices s/p band ligation therapy in August 2017, latent tuberculosis on Isoniazid/Pyridoxine, untreated H pylori gastritis, PUD who presented to the ED with complaint of abdominal pain -Epigastric abdominal pain -Acute cholecystitis -Decompensated HCV cirrhosis c/b esophageal varices s/p esophageal variceal ligation -Elevated LFTs -Latent TB on Isoniazid/Pyridoxine Plan: -Protonix 40mg PO BIDAC -Consider addition of Carafate -Liquid diet -NSAID avoidance - discontinuation of Mobic if possible -Recommend surgical consultation for acute cholecystitis -Recommend ID consultation to re-evaluate isoniazid therapy in the setting of persistently elevated LFTs in a cirrhotic patient -Will benefit from repeat EGD to evaluate esophageal varices and repeat EVL if needed *C-P Class A - abdominal jayashree-operative mortality ~10% *MELD-Na: 14 - Date & Time Date: 10/17/17 Time: 09:00 <Дмитрий Ceballos - Last Filed: 10/17/17 12:37> Meds - Medications Medications: Current Medications Heparin Sodium (Porcine) (Heparin) 5,000 units SC Q12 [facility] Last Admin: 10/16/17 21:41 Dose: 5,000 units Lactated Ringer's (Lactated Ringer's) 1,000 mls @ 120 mls/hr IV .Q8H20M [facility] Last Admin: 10/17/17 12:30 Dose: 120 mls/hr Piperacillin Sod/Tazobactam Sod (Zosyn 3.375 Gm Iv Premix) 3.375 gm in 50 mls @ 200 mls/hr IVPB Q6H [facility] PRN Reason: Protocol Last Admin: 10/17/17 08:47 Dose: 200 mls/hr Isoniazid (Niazid) 300 mg PO DAILY [facility] PRN Reason: Protocol Last Admin: 10/17/17 09:56 Dose: 300 mg Ondansetron HCl (Zofran Inj) 4 mg IVP Q6 PRN PRN Reason: Nausea/Vomiting Pantoprazole Sodium (Protonix Ec Tab) 40 mg PO BIDAC [facility] Last Admin: 10/17/17 07:34 Dose: 40 mg Pyridoxine HCl (Vitamin B6) 25 mg PO DAILY [facility] Last Admin: 10/17/17 09:56 Dose: 25 mg Sucralfate (Carafate Oral Susp) 1 gm PO TID [facility] Stop: 10/21/17 10:01 Last Admin: 10/17/17 09:56 Dose: 1 gm Results - Vital Signs Recent Vital Signs: Last Vital Signs Temp 98.3 F 10/17/17 07:39 Pulse 65 10/17/17 07:39 Resp 20 10/17/17 07:39 BP 119/72 10/17/17 07:39 Pulse Ox 98 10/17/17 07:39 - Labs Result Diagrams: 10/17/17 08:24 10/17/17 08:24 Labs: Laboratory Results - last 24 hr 10/16/17 10/16/17 10/17/17 14:05 19:19 08:24 WBC 5.3 RBC 4.20 L Hgb 11.7 L Hct 34.6 L MCV 82.4 MCH 27.9 MCHC 33.9 RDW 14.7 H Plt Count 56 L MPV 9.9 Neut % (Auto) 50.1 Lymph % (Auto) 37.2 [place] % (Auto) 8.4 Eos % (Auto) 3.6 Baso % (Auto) 0.7 Neut # (Auto) 2.6 Lymph # (Auto) 2.0 [place] # (Auto) 0.4 Eos # (Auto) 0.2 Baso # (Auto) 0.0 PT 15.7 H INR 1.4 Sodium Potassium Chloride Carbon Dioxide Anion Gap BUN Creatinine Est GFR ( Amer) Est GFR (Non-Af Amer) Random Glucose Calcium Total Bilirubin AST ALT Alkaline Phosphatase Total Protein Albumin Globulin Albumin/Globulin Ratio Influenza Typ A,B (EIA) Negative for flu a/b 10/17/17 08:24 WBC RBC Hgb Hct MCV MCH MCHC RDW Plt Count MPV Neut % (Auto) Lymph % (Auto) [place] % (Auto) Eos % (Auto) Baso % (Auto) Neut # (Auto) Lymph # (Auto) [place] # (Auto) Eos # (Auto) Baso # (Auto) PT INR Sodium 138 Potassium 3.6 Chloride 100 Carbon Dioxide 28 Anion Gap 14 BUN 7 L Creatinine 0.7 L Est GFR ( Amer) > 60 Est GFR (Non-Af Amer) > 60 Random Glucose 74 L Calcium 8.2 L Total Bilirubin 1.9 H AST 124 H ALT 75 H Alkaline Phosphatase 76 Total Protein 7.1 Albumin 3.1 L Globulin 4.0 H Albumin/Globulin Ratio 0.8 L Influenza Typ A,B (EIA) Attending/Attestation - Attestation I have personally seen and examined this patient.: Yes I have fully participated in the care of the patient.: Yes I have reviewed all pertinent clinical information: Yes Notes (Text): 10/17/17 12:36 62 year old male with h/o cirrhosis c/b varices s/p banding in the past, pud, esophagitis admitted with abdominal pain, with imaging suggestive of cholecystitis. Recommend antibiotics, surgical eval. Consider HIDA scan. Recommend PPI BID for h/o PUD/esophagitis. Outpatient h pylori therapy.
[2017-10-17] MEDS: Sucralfate 1 gm/10 ml Oral Susp UD PO SCH ×3 (09:56→17:30)
--- NOTE | 2017-10-17 10:02 | CP.PCM.PN ---
<Bisi Jackson - Last Filed: 10/17/17 10:28> Subjective - Date & Time of Evaluation Date of Evaluation: 10/17/17 Time of Evaluation: 09:58 - Subjective Subjective: Patient seen and examined at bedside with his son for translation. Patient says he is feeling much better today and having less abdominal pain, however he is still having generalized body aches. Patient also notes some small bumps on his left arm and abdomen that have been growing for about 5 months. He says the ones on his arm sometimes cause him pain when he is lifting heavy objects or pulling something towards him. Patient otherwise denies fever, chills, headache , chest pain, SOB, palpitations, cough, n/v/d/c, calf pain and lower extremity swelling. Objective - Vital Signs/Intake and Output Vital Signs (last 24 hours): Temp Pulse Resp BP Pulse Ox 98.3 F 65 20 119/72 98 10/17/17 07:39 10/17/17 07:39 10/17/17 07:39 10/17/17 07:39 10/17/17 07:39 Intake and Output: 10/17/17 10/17/17 06:59 18:59 Intake Total 1220 Balance 1220 - Medications Medications: Current Medications Acetaminophen (Tylenol 325mg Tab) 650 mg PO Q6 PRN PRN Reason: Pain, moderate (4-7) Last Admin: 10/17/17 07:47 Dose: 650 mg Heparin Sodium (Porcine) (Heparin) 5,000 units SC Q12 [facility] Last Admin: 10/16/17 21:41 Dose: 5,000 units Lactated Ringer's (Lactated Ringer's) 1,000 mls @ 120 mls/hr IV .Q8H20M [facility] Last Admin: 10/17/17 06:20 Dose: 120 mls/hr Piperacillin Sod/Tazobactam Sod (Zosyn 3.375 Gm Iv Premix) 3.375 gm in 50 mls @ 200 mls/hr IVPB Q6H [facility] PRN Reason: Protocol Last Admin: 10/17/17 08:47 Dose: 200 mls/hr Isoniazid (Niazid) 300 mg PO DAILY [facility] PRN Reason: Protocol Last Admin: 10/17/17 09:56 Dose: 300 mg Ondansetron HCl (Zofran Inj) 4 mg IVP Q6 PRN PRN Reason: Nausea/Vomiting Pantoprazole Sodium (Protonix Ec Tab) 40 mg PO BIDAC [facility] Last Admin: 10/17/17 07:34 Dose: 40 mg Pyridoxine HCl (Vitamin B6) 25 mg PO DAILY [facility] Last Admin: 10/17/17 09:56 Dose: 25 mg Sucralfate (Carafate Oral Susp) 1 gm PO TID [facility] Stop: 10/21/17 10:01 Last Admin: 10/17/17 09:56 Dose: 1 gm - Labs Labs: 10/17/17 08:24 10/17/17 08:24 PT 15.7 SECONDS (9.7-12.2) H 10/16/17 19:19 INR 1.4 10/16/17 19:19 - Constitutional Appears: Non-toxic, No Acute Distress - Head Exam Head Exam: ATRAUMATIC, NORMAL INSPECTION, NORMOCEPHALIC - Eye Exam Eye Exam: EOMI, PERRL, Scleral icterus - ENT Exam ENT Exam: Mucous Membranes Moist - Respiratory Exam Respiratory Exam: Clear to Ausculation Bilateral, NORMAL BREATHING PATTERN - Cardiovascular Exam Cardiovascular Exam: RRR, +S1, +S2 - GI/Abdominal Exam GI & Abdominal Exam: Soft, Normal Bowel Sounds. absent: Distended, Tenderness - Extremities Exam Extremities Exam: absent: Calf Tenderness, Pedal Edema Additional comments: LEFT arm: 2 small (3-4 cm) subcutaneous, mobile, nontender masses overlying the bicep muscle - Back Exam Back Exam: tenderness (right low flank with subcutaneous mass similar to that described in the left arm above) - Neurological Exam Neurological Exam: Alert, Awake, Oriented x3 - Psychiatric Exam Psychiatric exam: Normal Affect, Normal Mood - Skin Skin Exam: Dry, Intact, Warm Assessment and Plan - Assessment and Plan (Free Text) Plan: Abdominal pain * Afebrile, no leukocytosis * Transaminitis and elevated T Bili * Lipase 173 * History of H. Pylori as seen on biopsy done by Dr. Ceballos on 09/10 - patient completed treatment for this * Abdominal US (10/16): 1. Cholelithiasis with associated gallbladder wall thickening measuring up to 6.5 millimeters as well as gallbladder wall edema. Gallbladder calculus measures up to 1.9 centimeters. These findings may represent an acute cholecystitis. Clinical correlation and or correlation with nuclear medicine study may be helpful if clinically indicated. 2. Nodular and cirrhotic contour of the liver with associated increased echogenicity of the hepatic parenchymal cortex suggestive for fatty infiltration versus hepatic parenchymal disease. Clinical correlation. Previously noted 1 centimeter lesion in the left hepatic lobe on CT scan was not well imaged on the current study. 3. Limited visualization of the pancreas. * CXR: Mild venous congestion. Left hilar prominence. Biapical pleural thickening. Tortuous aorta. * CT abdomen: Distended gallbladder contains gallstones and surrounding with small pericholecystic fluid demonstrates diffuse wall thickening. Correlate clinically for cholecystitis. No evidence of biliary obstruction. Cirrhotic manifestation of the liver again noted. The portal vein is patent. Splenomegaly likely related to portal hypertension. Bibasilar atelectasis and possible trace pleural effusion. * General Surgery consulted (Dr. Sigala), help appreciated * GI consulted (Dr. Ceballos), help appreciated * consider carafate * avoid NSAIDs * ID consulted (Dr. Farias), help appreciated * f/u blood cultures * Zosyn 3.375 g IV Q6 * Protonix BID AC * Zofran 4 mg PRN * LR @ 120 Generalized Body Aches * Flu negative * Immunology workup from Jun 2017 and Aug 2017: positive results for RF IgA and IgM (9 and 41, respectively), negative ZVE 6 profile, negative anti- mitochondrial Ab, negative anti-smooth muscle Ab, negative CCP IgG, HIV/Lyme/ RPR negative Thrombocytopenia * Hold heparin * Monitor with AM labs History of TB diagnosed Jun 2017 * ID consulted (Dr. Farias), help appreciated * Continue Isoniazid 300 mg and pyridoxine 25 mg * f/u B6 level History of HCV * GT 3a, VL 733,151 in June 2017 * MELD score: 13 - estimated 3 month mortality of 6% * GI consulted (Dr. Ceballos), help appreciated * Monitor LFTs Prophylaxis * Heparin c/i due to thrombocytopenia * Protonix BID AC <Trevor Harmon - Last Filed: 10/17/17 14:26> Objective - Vital Signs/Intake and Output Vital Signs (last 24 hours): Temp Pulse Resp BP Pulse Ox 98.3 F 65 20 119/72 98 10/17/17 07:39 10/17/17 07:39 10/17/17 07:39 10/17/17 07:39 10/17/17 07:39 Intake and Output: 10/17/17 10/17/17 06:59 18:59 Intake Total 1220 Balance 1220 - Medications Medications: Current Medications Heparin Sodium (Porcine) (Heparin) 5,000 units SC Q12 [facility] Last Admin: 10/16/17 21:41 Dose: 5,000 units Lactated Ringer's (Lactated Ringer's) 1,000 mls @ 120 mls/hr IV .Q8H20M [facility] Last Admin: 10/17/17 12:30 Dose: 120 mls/hr Piperacillin Sod/Tazobactam Sod (Zosyn 3.375 Gm Iv Premix) 3.375 gm in 50 mls @ 200 mls/hr IVPB Q6H [facility] PRN Reason: Protocol Last Admin: 10/17/17 08:47 Dose: 200 mls/hr Isoniazid (Niazid) 300 mg PO DAILY [facility] PRN Reason: Protocol Last Admin: 10/17/17 09:56 Dose: 300 mg Ondansetron HCl (Zofran Inj) 4 mg IVP Q6 PRN PRN Reason: Nausea/Vomiting Pantoprazole Sodium (Protonix Ec Tab) 40 mg PO BIDAC [facility] Last Admin: 10/17/17 07:34 Dose: 40 mg Pyridoxine HCl (Vitamin B6) 25 mg PO DAILY [facility] Last Admin: 10/17/17 09:56 Dose: 25 mg Sucralfate (Carafate Oral Susp) 1 gm PO TID [facility] Stop: 10/21/17 10:01 Last Admin: 10/17/17 09:56 Dose: 1 gm - Labs Labs: 10/17/17 08:24 10/17/17 08:24 PT 15.7 SECONDS (9.7-12.2) H 10/16/17 19:19 INR 1.4 10/16/17 19:19 Attending/Attestation - Attestation I have personally seen and examined this patient.: Yes I have fully participated in the care of the patient.: Yes I have reviewed all pertinent clinical information, including history, physical exam and plan: Yes Notes (Text): Patient was seen and examined by me. Agree with the above note by the resident Earlier when the resident saw patient - family members were at bedside however by the time I rounded there was no family at bedside He looked more comfortable and on examination and was still having tenderness in the RUQ however not as severe as before. As mentioned previously the U/S showed thickened gall bladder wall and surrounding stranding. Our concern is for cholecystitis and abx were started yesterday. The CT scan also showed thicken zambrano and findings concerning for cholecytitis. We are also consulting ID to see if there can be a change to his TB medication as his LFTs are already elevated, especially considering he has hepatitis C. thank you Trevor Harmon
--- NOTE | 2017-10-17 11:35 | CP.PCM.CON ---
History of Present Illness - History of Present Illness History of Present Illness: Surgery Consult: Dr. Sigala Pt is a 62M with PMHx significant for HCV cirrhosis with esophageal varices s/p band ligation, latent TB, gastritis and PUD who presented to with complaints of abdominal pain x 2 days. Pt states his pain is mostly in the epigastric region with radiation to the chest and has been present on and off for the past few months. Pt had EGD with banding of esophageal varices in August,, and has continued to have pain since. Pt also reports pain in the RUQ with subjective fevers at home. Denies any N/V or other associated symptoms. Pt is on Isoniazid/Pyridoxine for latent TB since Jul of this year. PMHx: as stated above PSHx: denies SocialHx: denies smoking, EtOH/drugs NKDA Review of Systems - Review of Systems All systems: reviewed and no additional remarkable complaints except (as per HPI ) Past Patient History - Past Medical History & Family History Past Medical History?: Yes - Past Social History Smoking Status: Never Smoked - CARDIAC Hx Heart Attack: No - PULMONARY Hx Respiratory Disorders: Yes Hx Tuberculosis: Yes - NEUROLOGICAL Hx Seizures: No Hx Transient Ischemic Attacks (TIA): No - HEMATOLOGICAL/ONCOLOGICAL Hx Blood Disorders: Yes Hx Hepatitis C: Yes - MUSCULOSKELETAL/RHEUMATOLOGICAL Hx Fractures: No - GASTROINTESTINAL Hx Gastrointestinal Disorders: No - PSYCHIATRIC Hx Substance Use: No - SURGICAL HISTORY Hx Surgeries: No - ANESTHESIA Hx Anesthesia Reactions: No Hx Malignant Hyperthermia: No Meds Allergies/Adverse Reactions: Allergies Allergy/AdvReac Type Severity Reaction Status Date / Time No Known Allergies Allergy Verified 10/16/17 05:22 - Medications Medications: Current Medications Heparin Sodium (Porcine) (Heparin) 5,000 units SC Q12 [facility] Last Admin: 10/16/17 21:41 Dose: 5,000 units Lactated Ringer's (Lactated Ringer's) 1,000 mls @ 120 mls/hr IV .Q8H20M [facility] Last Admin: 10/17/17 06:20 Dose: 120 mls/hr Piperacillin Sod/Tazobactam Sod (Zosyn 3.375 Gm Iv Premix) 3.375 gm in 50 mls @ 200 mls/hr IVPB Q6H [facility] PRN Reason: Protocol Last Admin: 10/17/17 08:47 Dose: 200 mls/hr Isoniazid (Niazid) 300 mg PO DAILY [facility] PRN Reason: Protocol Last Admin: 10/17/17 09:56 Dose: 300 mg Ondansetron HCl (Zofran Inj) 4 mg IVP Q6 PRN PRN Reason: Nausea/Vomiting Pantoprazole Sodium (Protonix Ec Tab) 40 mg PO BIDAC [facility] Last Admin: 10/17/17 07:34 Dose: 40 mg Pyridoxine HCl (Vitamin B6) 25 mg PO DAILY [facility] Last Admin: 10/17/17 09:56 Dose: 25 mg Sucralfate (Carafate Oral Susp) 1 gm PO TID [facility] Stop: 10/21/17 10:01 Last Admin: 10/17/17 09:56 Dose: 1 gm Physical Exam - Constitutional Appears: Well, No Acute Distress - Head Exam Head Exam: ATRAUMATIC, NORMOCEPHALIC - Eye Exam Eye Exam: Normal appearance - ENT Exam ENT Exam: Mucous Membranes Moist - Respiratory Exam Respiratory Exam: NORMAL BREATHING PATTERN - Cardiovascular Exam Cardiovascular Exam: RRR - GI/Abdominal Exam GI & Abdominal Exam: Soft, Tenderness (epigastric/RUQ ). absent: Distended - Neurological Exam Neurological exam: Alert, Oriented x3 - Skin Skin Exam: Dry, Warm Results - Vital Signs Recent Vital Signs: Last Vital Signs Temp 98.3 F 10/17/17 07:39 Pulse 65 10/17/17 07:39 Resp 20 10/17/17 07:39 BP 119/72 10/17/17 07:39 Pulse Ox 98 10/17/17 07:39 - Labs Result Diagrams: 10/17/17 08:24 10/17/17 08:24 Labs: Laboratory Results - last 24 hr 10/16/17 10/16/17 10/17/17 14:05 19:19 08:24 WBC 5.3 RBC 4.20 L Hgb 11.7 L Hct 34.6 L MCV 82.4 MCH 27.9 MCHC 33.9 RDW 14.7 H Plt Count 56 L MPV 9.9 Neut % (Auto) 50.1 Lymph % (Auto) 37.2 [place] % (Auto) 8.4 Eos % (Auto) 3.6 Baso % (Auto) 0.7 Neut # (Auto) 2.6 Lymph # (Auto) 2.0 [place] # (Auto) 0.4 Eos # (Auto) 0.2 Baso # (Auto) 0.0 PT 15.7 H INR 1.4 Sodium Potassium Chloride Carbon Dioxide Anion Gap BUN Creatinine Est GFR ( Amer) Est GFR (Non-Af Amer) Random Glucose Calcium Total Bilirubin AST ALT Alkaline Phosphatase Total Protein Albumin Globulin Albumin/Globulin Ratio Influenza Typ A,B (EIA) Negative for flu a/b 10/17/17 08:24 WBC RBC Hgb Hct MCV MCH MCHC RDW Plt Count MPV Neut % (Auto) Lymph % (Auto) [place] % (Auto) Eos % (Auto) Baso % (Auto) Neut # (Auto) Lymph # (Auto) [place] # (Auto) Eos # (Auto) Baso # (Auto) PT INR Sodium 138 Potassium 3.6 Chloride 100 Carbon Dioxide 28 Anion Gap 14 BUN 7 L Creatinine 0.7 L Est GFR ( Amer) > 60 Est GFR (Non-Af Amer) > 60 Random Glucose 74 L Calcium 8.2 L Total Bilirubin 1.9 H AST 124 H ALT 75 H Alkaline Phosphatase 76 Total Protein 7.1 Albumin 3.1 L Globulin 4.0 H Albumin/Globulin Ratio 0.8 L Influenza Typ A,B (EIA) - Imaging and Cardiology CT scan - abdomen Status: Image reviewed by me, Report reviewed by me Assessment & Plan - Assessment and Plan (Free Text) Assessment: 62M with HCV cirrhosis and acute cholecystitis Plan: - will monitor LFTs; likely elevated 2/2 cirrhosis since CBD not shown to have stones on imaging and alk phos normal - cont IV ABX - thrombocytopenia likely also related to cirrhosis; will need to correct prior to planning for OR - platelet function test ordered - d/w Dr. Zakiya Terrazas, PGY-3
[2017-10-17 16:58] LABS: BASO % 0.6 % (0.0-2.0); EOS # 0.3 K/uL (0.0-0.7); EOS % 5.8 % (0.0-4.0); HEMOGLOBIN 11.4 g/dL (12.0-18.0); LYMPH # 1.5 K/uL (1.0-4.3); LYMPH % 36.1 % (20.0-40.0); MEAN CELL VOLUME 82.9 fL (80.0-94.0); MEAN CORPUSCULAR HEMOGLOBIN 27.7 pg (27.0-31.0); MEAN CORPUSCULAR HGB CONC 33.5 g/dL (33.0-37.0); MEAN PLATELET VOLUME 9.6 fL (7.2-11.7); MONO # 0.4 K/uL (0.0-0.8); MONO % 9.5 % (0.0-10.0); NEUT # 2.1 K/uL (1.8-7.0); NRBC % 0.1 % (0.0-2.0); RBC 4.1 Mil/uL (4.40-5.90); WHITE BLOOD COUNT 4.3 K/uL (4.8-10.8)
--- NOTE | 2017-10-17 17:45 | CP.PCM.CON ---
History of Present Illness - History of Present Illness History of Present Illness: 62yo [place] male , presented to the ED with complaint of abdominal pain RUQ and U/S shows cholelithiasis with cholecystitis. He is on therapy with Isoniazid and Pyridoxine for latent TB since July 2017. He admits to fever at home and ongoing weight loss with about 20 lbs in the last year. Denies any change in bowel habits, nausea, vomiting. 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) complicated by esophageal varices s/p band ligation therapy in August 2017, latent tuberculosis on Isoniazid/Pyridoxine, untreated H pylori gastritis PSHx: denies any prior surgical history FHx: Discussed with patient and he denies any significant family history Social: Denies tobacco, EtOH or illicit drug use Endo: EGD/Colonoscopy 08/2017 gastric ulcer, H pylori positive erosive gastritis (HP untreated to date), large esophageal varices; 7 polyps (3 tubular adenomas), AVMs, internal hemorrhoids Review of Systems - Constitutional Constitutional: As Per HPI - EENT Eyes: absent: As Per HPI, Blind Spots, Blurred Vision, Change in Vision, Decreased Night Vision, Diplopia, Discharge, Dry Eye, Exophthalmos, Floaters, Irritation, Itchy Eyes, Loss of Peripheral Vision, Pain, Photophobia, Requires Corrective Lenses, Sees Flashes, Spots in Vision, Tunnel Vision, Other Visual Disturbances, Loss of Vision, Other Ears: absent: As Per HPI, Decreased Hearing, Ear Discharge, Ear Pain, Tinnitus, Abnormal Hearing, Disequilibrium, Dizziness, Other Nose/Mouth/Throat: absent: As Per HPI, Epistaxis, Nasal Congestion, Nasal Discharge, Nasal Obstruction, Nasal Trauma, Nose Pain, Post Nasal Drip, Sinus Pain, Sinus Pressure, Bleeding Gums, Change in Voice, Dental Pain, Dry Mouth, Dysphagia, Halitosis, Hoarsness, Lip Swelling, Mouth Lesions, Mouth Pain, Odynophagia, Sore Throat, Throat Swelling, Tongue Swelling, Facial Pain, Neck Pain, Neck Mass, Other - Cardiovascular Cardiovascular: absent: As Per HPI, Acrocyanosis, Chest Pain, Chest Pain at Rest , Chest Pain with Activity, Claudication, Diaphoresis, Dyspnea, Dyspnea on Exertion, Edema, Irregular Heart Rhythm, Pain Radiating to Arm/Neck/Jaw, Leg Edema, Leg Ulcers, Lightheadedness, Orthopnea, Palpitations, Paroxysmal Nocturnal Dyspnea, Pedal Edema, Radiating Pain, Rapid Heart Rate, Slow Heart Rate, Syncope, Other - Respiratory Respiratory: absent: As Per HPI, Cough, Dyspnea, Hemoptysis, Dyspnea on Exertion , Wheezing, Snoring, Stridor, Pain on Inspiration, Chest Congestion, Excessive Mucous Production, Change in Mucous Color, Pain with Coughing, Other - Gastrointestinal Gastrointestinal: As Per HPI - Genitourinary Genitourinary: absent: As Per HPI, Change in Urinary Stream, Difficulty Urinating, Dysuria, Flank Pain, Hematuria, Pyuria, Nocturia, Urinary Incontinence, Urinary Frequency, Urinary Hesitance, Urinary Urgency, Voiding Freq/Small Amts, Freq UTI, Hx Renal/Bladder Calculi, Hx /Renal Surgery, Bladder Distension, Other - Musculoskeletal Musculoskeletal: absent: As Per HPI, Abnormal Gait, Arthralgias, Atrophy, Back Pain, Deformity, Joint Swelling, Limited Range of Motion, Loss of Height, Muscle Cramps, Muscle Weakness, Myalgias, Neck Pain, Numbness, Radiating Pain into Limb, Stiffness, Tingling, Other - Integumentary Integumentary: absent: As Per HPI, Acne, Alopecia, Bleeding Lesions, Change in Hair, Change in Nails, Change in Pigmentation, Changing Lesions, Dry Skin, Erythema, Furuncle, Hirsutism, Lesions, New Lesions, Non-Healing Lesions, Photosensitivity, Pruritus, Rash, Skin Pain, Skin Ulcer, Sores, Striae, Swelling , Unusual Bruising, Wounds, Jaundice, Other - Neurological Neurological: absent: As Per HPI, Abnormal Gait, Abnormal Hearing, Abnormal Movements, Abnormal Speech, Behavioral Changes, Burning Sensations, Confusion, Convulsions, Disequilibrium, Dizziness, Numbness, Focal Weakness, Frequent Falls , Headaches, Lack of Coordination, Loss of Vision, Memory Loss, Paresthesias, Radicular Pain, Restless Legs, Sensory Deficit, Syncope, Tingling, Tremor, Vertigo, Weakness, Other Visual Disturbances, Other - Psychiatric Psychiatric: absent: As Per HPI, Abnormal Sleep Pattern, Anhedonia, Anxiety, Auditory Hallucinations, Behavioral Changes, Change in Appetite, Change in Libido, Confusion, Depression, Difficulty Concentrating, Hallucinations, Homicidal Ideation, Hopelessness, Irritability, Memory Loss, Mood Swings, Panic Attacks, Paranoia, Suicidal Ideation, Visual Hallucinations, Tactile Hallucinations, Other - Endocrine Endocrine: absent: As Per HPI, Change in Body Appearance, Change in Libido, Cold Intolorance, Deepening of Voice, Excessive Sweating, Fatigue, Flushing, Heat Intolorance, Increase in Ring/Shoe/Hat Size, Palpitations, Polydipsia, Polyphagia, Polyuria, Other - Hematologic/Lymphatic Hematologic: absent: As Per HPI, Easy Bleeding, Easy Bruising, Lymphadenopathy, Other Past Patient History - Past Medical History & Family History Past Medical History?: Yes - Past Social History Smoking Status: Never Smoked - CARDIAC Hx Heart Attack: No - PULMONARY Hx Respiratory Disorders: Yes Hx Tuberculosis: Yes - NEUROLOGICAL Hx Seizures: No Hx Transient Ischemic Attacks (TIA): No - HEMATOLOGICAL/ONCOLOGICAL Hx Blood Disorders: Yes Hx Hepatitis C: Yes - MUSCULOSKELETAL/RHEUMATOLOGICAL Hx Fractures: No - GASTROINTESTINAL Hx Gastrointestinal Disorders: No - PSYCHIATRIC Hx Substance Use: No - SURGICAL HISTORY Hx Surgeries: No - ANESTHESIA Hx Anesthesia Reactions: No Hx Malignant Hyperthermia: No Meds Allergies/Adverse Reactions: Allergies Allergy/AdvReac Type Severity Reaction Status Date / Time No Known Allergies Allergy Verified 10/16/17 05:22 - Medications Medications: Current Medications Heparin Sodium (Porcine) (Heparin) 5,000 units SC Q12 [facility] Last Admin: 10/16/17 21:41 Dose: 5,000 units Lactated Ringer's (Lactated Ringer's) 1,000 mls @ 120 mls/hr IV .Q8H20M [facility] Last Admin: 10/17/17 15:58 Dose: Not Given Piperacillin Sod/Tazobactam Sod (Zosyn 3.375 Gm Iv Premix) 3.375 gm in 50 mls @ 200 mls/hr IVPB Q6H [facility] PRN Reason: Protocol Last Admin: 10/17/17 14:02 Dose: 200 mls/hr Isoniazid (Niazid) 300 mg PO DAILY [facility] PRN Reason: Protocol Last Admin: 10/17/17 09:56 Dose: 300 mg Ondansetron HCl (Zofran Inj) 4 mg IVP Q6 PRN PRN Reason: Nausea/Vomiting Pantoprazole Sodium (Protonix Ec Tab) 40 mg PO BIDAC [facility] Last Admin: 10/17/17 17:30 Dose: 40 mg Pyridoxine HCl (Vitamin B6) 25 mg PO DAILY [facility] Last Admin: 10/17/17 09:56 Dose: 25 mg Sucralfate (Carafate Oral Susp) 1 gm PO TID [facility] Stop: 10/21/17 10:01 Last Admin: 10/17/17 17:30 Dose: 1 gm Physical Exam - Constitutional Appears: Non-toxic, Cachectic, Chronically Ill - Head Exam Head Exam: NORMOCEPHALIC - Eye Exam Eye Exam: PERRL. absent: Scleral icterus - ENT Exam ENT Exam: Mucous Membranes Dry, Normal External Ear Exam, Normal Oropharynx - Neck Exam Neck exam: Negative for: Lymphadenopathy - Respiratory Exam Respiratory Exam: Decreased Breath Sounds, Rhonchi - Cardiovascular Exam Cardiovascular Exam: REGULAR RHYTHM, +S1, +S2 - GI/Abdominal Exam GI & Abdominal Exam: Diminished Bowel Sounds, Soft. absent: Tenderness - Rectal Exam Rectal Exam: Deferred - Exam Exam: NORMAL INSPECTION - Extremities Exam Extremities exam: Positive for: pedal pulses present. Negative for: calf tenderness, pedal edema, tenderness - Back Exam Back exam: absent: CVA tenderness (L), CVA tenderness (R), paraspinal tenderness - Neurological Exam Neurological exam: Alert, CN II-XII Intact, Oriented x3, Reflexes Normal - Psychiatric Exam Psychiatric exam: Normal Mood - Skin Skin Exam: Dry Results - Vital Signs Recent Vital Signs: Last Vital Signs Temp 98.2 F 10/17/17 15:40 Pulse 64 10/17/17 15:40 Resp 20 10/17/17 15:40 BP 117/68 10/17/17 15:40 Pulse Ox 100 10/17/17 15:40 - Labs Result Diagrams: 10/17/17 16:52 10/17/17 08:24 Labs: Laboratory Results - last 24 hr 10/16/17 10/16/17 10/17/17 14:05 19:19 08:24 WBC 5.3 RBC 4.20 L Hgb 11.7 L Hct 34.6 L MCV 82.4 MCH 27.9 MCHC 33.9 RDW 14.7 H Plt Count 56 L MPV 9.9 Neut % (Auto) 50.1 Lymph % (Auto) 37.2 [place] % (Auto) 8.4 Eos % (Auto) 3.6 Baso % (Auto) 0.7 Neut # (Auto) 2.6 Lymph # (Auto) 2.0 [place] # (Auto) 0.4 Eos # (Auto) 0.2 Baso # (Auto) 0.0 PT 15.7 H INR 1.4 Sodium Potassium Chloride Carbon Dioxide Anion Gap BUN Creatinine Est GFR ( Amer) Est GFR (Non-Af Amer) Random Glucose Calcium Total Bilirubin AST ALT Alkaline Phosphatase Total Protein Albumin Globulin Albumin/Globulin Ratio Stool Occult Blood Influenza Typ A,B (EIA) Negative for flu a/b 10/17/17 10/17/17 10/17/17 08:24 15:40 16:52 WBC 4.3 L RBC 4.10 L Hgb 11.4 L Hct 34.0 L MCV 82.9 MCH 27.7 MCHC 33.5 RDW 14.0 Plt Count 56 L MPV 9.6 Neut % (Auto) 48.0 L Lymph % (Auto) 36.1 [place] % (Auto) 9.5 Eos % (Auto) 5.8 H Baso % (Auto) 0.6 Neut # (Auto) 2.1 Lymph # (Auto) 1.5 [place] # (Auto) 0.4 Eos # (Auto) 0.3 Baso # (Auto) 0.0 PT INR Sodium 138 Potassium 3.6 Chloride 100 Carbon Dioxide 28 Anion Gap 14 BUN 7 L Creatinine 0.7 L Est GFR ( Amer) > 60 Est GFR (Non-Af Amer) > 60 Random Glucose 74 L Calcium 8.2 L Total Bilirubin 1.9 H AST 124 H ALT 75 H Alkaline Phosphatase 76 Total Protein 7.1 Albumin 3.1 L Globulin 4.0 H Albumin/Globulin Ratio 0.8 L Stool Occult Blood Negative Influenza Typ A,B (EIA) Assessment & Plan (1) Hepatitis C infection Status: Acute (2) Latent tuberculosis infection Status: Acute (3) Cholecystitis Status: Acute (4) Cirrhosis Status: Acute (5) Elevated liver enzymes Status: Acute - Assessment and Plan (Free Text) Assessment: complex case of 62 yo male with Hep C related cirrhosis , latent TB and acute/ chronic cholecystitis On IV zosyn as per primary team with GI and surgery on board LFT's are at or near baseline as compared to 2016 - no need to d/c INH rx at this time
[2017-10-17] MEDS ORDERED: Morphine 4 MG/ML VIAL IVP STA (20:17)
[2017-10-18] MEDS: Piperacill/Tazo 3.375gm in Dex 3.375 GM/50 ML BAG IVPB SCH ×4 (02:50→20:10)
[2017-10-18] MEDS: Pantoprazole 40 mg EC Tab PO SCH ×2 (06:35→17:05)
[2017-10-18 07:11] LABS: BASO # 0.1 K/uL (0.0-0.2); BASO % 1.3 % (0.0-2.0); EOS # 0.2 K/uL (0.0-0.7); EOS % 4.5 % (0.0-4.0); HEMOGLOBIN 11.7 g/dL (12.0-18.0); LYMPH # 1.2 K/uL (1.0-4.3); LYMPH % 27.6 % (20.0-40.0); MEAN CELL VOLUME 82.1 fL (80.0-94.0); MEAN CORPUSCULAR HEMOGLOBIN 27.8 pg (27.0-31.0); MEAN CORPUSCULAR HGB CONC 33.9 g/dL (33.0-37.0); MEAN PLATELET VOLUME 9.1 fL (7.2-11.7); MONO # 0.4 K/uL (0.0-0.8); MONO % 8.8 % (0.0-10.0); NEUT # 2.6 K/uL (1.8-7.0); NEUT % 57.8 % (50.0-75.0); NRBC % 0.1 % (0.0-2.0); RBC 4.2 Mil/uL (4.40-5.90); RED CELL DISTRIBUTION WIDTH 14.1 % (11.5-14.5); WHITE BLOOD COUNT 4.5 K/uL (4.8-10.8)
[2017-10-18 07:15] LABS: FUNCTIONING PLTS 48 K/uL; PLT BASE COUNT 55 K/uL; PLT(ADP) 7 K/uL
[2017-10-18] MEDS: Lactated Ringer's 1,000 ML IV SCH ×4 (07:17→21:53)
[2017-10-18 07:22] LABS: INR 1.3; PROTHROMBIN TIME 14.5 SECONDS (9.7-12.2)
[2017-10-18 07:28] LABS: ALB/GLOB RATIO 0.8 (1.0-2.1); ALBUMIN 3.2 g/dL (3.5-5.0); ALT/SGPT 79 U/L (21-72); AST/SGOT 184 U/L (17-59); BLOOD UREA NITROGEN 5 mg/dL (9-20); CALCIUM 8.3 mg/dl (8.6-10.4); GFR AFRICAN-AMERICAN > 60; GFR NON-AFRICAN AMERICAN > 60
--- NOTE | 2017-10-18 08:52 | CP.PCM.PN ---
Subjective - Date & Time of Evaluation Date of Evaluation: 10/18/17 Time of Evaluation: 08:49 - Subjective Subjective: General Surgery - DR. Sigala Pt S&E. GREGORIO. PT complains of epigastric abdominal pain and RUQ pain. No worse than yesterday. He is tolerating clear liquid diet. NO Fevers/Chils, SOB /Chest pain. Objective - Vital Signs/Intake and Output Vital Signs (last 24 hours): Temp Pulse Resp BP Pulse Ox 98.2 F 62 20 130/74 98 10/18/17 07:00 10/18/17 07:00 10/18/17 07:00 10/18/17 07:00 10/18/17 07:00 Intake and Output: 10/18/17 10/18/17 06:59 18:59 Intake Total 1460 800 Balance 1460 800 - Medications Medications: Current Medications Heparin Sodium (Porcine) (Heparin) 5,000 units SC Q12 [facility] Last Admin: 10/16/17 21:41 Dose: 5,000 units Lactated Ringer's (Lactated Ringer's) 1,000 mls @ 120 mls/hr IV .Q8H20M [facility] Last Admin: 10/17/17 22:38 Dose: 120 mls/hr Piperacillin Sod/Tazobactam Sod (Zosyn 3.375 Gm Iv Premix) 3.375 gm in 50 mls @ 200 mls/hr IVPB Q6H [facility] PRN Reason: Protocol Last Admin: 10/18/17 02:50 Dose: 200 mls/hr Isoniazid (Niazid) 300 mg PO DAILY [facility] PRN Reason: Protocol Last Admin: 10/17/17 09:56 Dose: 300 mg Ondansetron HCl (Zofran Inj) 4 mg IVP Q6 PRN PRN Reason: Nausea/Vomiting Pantoprazole Sodium (Protonix Ec Tab) 40 mg PO BIDAC [facility] Last Admin: 10/18/17 06:35 Dose: 40 mg Pyridoxine HCl (Vitamin B6) 25 mg PO DAILY [facility] Last Admin: 10/17/17 09:56 Dose: 25 mg Sucralfate (Carafate Oral Susp) 1 gm PO TID [facility] Stop: 10/21/17 10:01 Last Admin: 10/17/17 17:30 Dose: 1 gm - Labs Labs: 10/18/17 07:01 10/18/17 07:01 PT 14.5 SECONDS (9.7-12.2) H 10/18/17 07:01 INR 1.3 10/18/17 07:01 - Constitutional Appears: No Acute Distress - Head Exam Head Exam: ATRAUMATIC, NORMAL INSPECTION, NORMOCEPHALIC - Eye Exam Eye Exam: Normal appearance - Respiratory Exam Respiratory Exam: NORMAL BREATHING PATTERN. absent: Respiratory Distress - GI/Abdominal Exam GI & Abdominal Exam: Guarding, Soft, Tenderness (RUQ and Epigastrium, +Gaurding) . absent: Distended, Rebound - Neurological Exam Neurological Exam: Alert, Oriented x3 - Psychiatric Exam Psychiatric exam: Normal Affect, Normal Mood - Skin Skin Exam: Dry, Intact Assessment and Plan - Assessment and Plan (Free Text) Assessment: 62M with HCV cirrhosis, PUD and acute cholecystitis Plan: - F/U EGD with GI today - Plan for OR tomorrow for lap francisco - F/U Platelet function tests Dw Dr Sigala
--- NOTE | 2017-10-18 09:51 | CP.PCM.PN ---
Subjective - Date & Time of Evaluation Date of Evaluation: 10/18/17 Time of Evaluation: 07:10 - Subjective Subjective: Patient seen and examined at bedside. Patient resting comfortably in bed with no new complaints at this time. Patient says he is still having some midepigastric pain that is burning. He does not notice anything making it better or worse. Patient otherwise denies fever, chills, headache, chest pain, SOB, palpitations, cough, n/v/d/c, calf pain and lower extremity swelling. Patient was seen again in the afternoon with Dr. Lam. He called the family and explained that the patient would need surgery tomorrow as well as the patient's risk for bleeding due to his HCV and thrombocytopenia. He also informed the family that he would likely need a transfusion before the surgery. Patient's family understood and all questions answered. Objective - Vital Signs/Intake and Output Vital Signs (last 24 hours): Temp Pulse Resp BP Pulse Ox 98.2 F 62 20 130/74 98 10/18/17 07:00 10/18/17 07:00 10/18/17 07:00 10/18/17 07:00 10/18/17 07:00 Intake and Output: 10/18/17 10/18/17 06:59 18:59 Intake Total 1460 800 Balance 1460 800 - Medications Medications: Current Medications Heparin Sodium (Porcine) (Heparin) 5,000 units SC Q12 [facility] Last Admin: 10/16/17 21:41 Dose: 5,000 units Lactated Ringer's (Lactated Ringer's) 1,000 mls @ 120 mls/hr IV .Q8H20M [facility] Last Admin: 10/17/17 22:38 Dose: 120 mls/hr Piperacillin Sod/Tazobactam Sod (Zosyn 3.375 Gm Iv Premix) 3.375 gm in 50 mls @ 200 mls/hr IVPB Q6H [facility] PRN Reason: Protocol Last Admin: 10/18/17 02:50 Dose: 200 mls/hr Isoniazid (Niazid) 300 mg PO DAILY [facility] PRN Reason: Protocol Last Admin: 10/17/17 09:56 Dose: 300 mg Ondansetron HCl (Zofran Inj) 4 mg IVP Q6 PRN PRN Reason: Nausea/Vomiting Pantoprazole Sodium (Protonix Ec Tab) 40 mg PO BIDAC [facility] Last Admin: 10/18/17 06:35 Dose: 40 mg Pyridoxine HCl (Vitamin B6) 25 mg PO DAILY [facility] Last Admin: 10/17/17 09:56 Dose: 25 mg Sucralfate (Carafate Oral Susp) 1 gm PO TID [facility] Stop: 10/21/17 10:01 Last Admin: 10/17/17 17:30 Dose: 1 gm - Labs Labs: 10/18/17 07:01 10/18/17 07:01 PT 14.5 SECONDS (9.7-12.2) H 10/18/17 07:01 INR 1.3 10/18/17 07:01 - Additional Findings Additional findings: - Constitutional Appears: Non-toxic, No Acute Distress - Head Exam Head Exam: ATRAUMATIC, NORMAL INSPECTION, NORMOCEPHALIC - Eye Exam Eye Exam: EOMI, PERRL, Scleral icterus - ENT Exam ENT Exam: Mucous Membranes Moist - Respiratory Exam Respiratory Exam: Clear to Ausculation Bilateral, NORMAL BREATHING PATTERN - Cardiovascular Exam Cardiovascular Exam: RRR, +S1, +S2 - GI/Abdominal Exam GI & Abdominal Exam: Tenderness (mid epigastrum), Soft, Normal Bowel Sounds. absent: Distended - Extremities Exam Extremities Exam: absent: Calf Tenderness, Pedal Edema Additional comments: LEFT arm: 2 small (3-4 cm) subcutaneous, mobile, nontender masses overlying the bicep muscle - Back Exam Back Exam: tenderness (right low flank with subcutaneous mass similar to that described in the left arm above) - Neurological Exam Neurological Exam: Alert, Awake, Oriented x3 - Psychiatric Exam Psychiatric exam: Normal Affect, Normal Mood - Skin Skin Exam: Dry, Intact, Warm Assessment and Plan - Assessment and Plan (Free Text) Plan: Disposition: Patient is scheduled for the OR for cholecystectomy tomorrow morning. Patient has a MELD score of 13 and is moderate risk for surgery. Per surgery team, patient will likely get platelets and vitamin K today before the OR tomorrow morning. Abdominal pain * Afebrile since 10/16 (100.7 F), leukopenia * Transaminitis and elevated T Bili * Lipase 173 * History of H. Pylori as seen on biopsy done by Dr. Ceballos on 09/10 - patient completed treatment for this * Abdominal US (10/16): 1. Cholelithiasis with associated gallbladder wall thickening measuring up to 6.5 millimeters as well as gallbladder wall edema. Gallbladder calculus measures up to 1.9 centimeters. These findings may represent an acute cholecystitis. Clinical correlation and or correlation with nuclear medicine study may be helpful if clinically indicated. 2. Nodular and cirrhotic contour of the liver with associated increased echogenicity of the hepatic parenchymal cortex suggestive for fatty infiltration versus hepatic parenchymal disease. Clinical correlation. Previously noted 1 centimeter lesion in the left hepatic lobe on CT scan was not well imaged on the current study. 3. Limited visualization of the pancreas. * CXR: Mild venous congestion. Left hilar prominence. Biapical pleural thickening. Tortuous aorta. * CT abdomen: Distended gallbladder contains gallstones and surrounding with small pericholecystic fluid demonstrates diffuse wall thickening. Correlate clinically for cholecystitis. No evidence of biliary obstruction. Cirrhotic manifestation of the liver again noted. The portal vein is patent. Splenomegaly likely related to portal hypertension. Bibasilar atelectasis and possible trace pleural effusion. * General Surgery consulted (Dr. Sigala), help appreciated * Cholecystectomy planned for 10/19 * GI consulted (Dr. Ceballos), help appreciated * Patient had esophageal varices banded in August 2017 * EGD on 10/18 * avoid NSAIDs * ID consulted (Dr. Farias), help appreciated * f/u blood cultures * Zosyn 3.375 g IV Q6 * Protonix BID AC * Zofran 4 mg PRN * Dilaudid 0.5 mg PRN severe pain * LR @ 120 * carafate 1 g TID Generalized Body Aches * Flu negative * Immunology workup from Jun 2017 and Aug 2017: positive results for RF IgA and IgM (9 and 41, respectively), negative ZEV 6 profile, negative anti- mitochondrial Ab, negative anti-smooth muscle Ab, negative CCP IgG, HIV/Lyme/ RPR negative Thrombocytopenia, Pancytopenia * Possibly secondary to isoniazid therapy vs HCV * Hold heparin * Platelet function assay (10/18): 48 * Monitor with AM labs History of TB diagnosed Jun 2017 * ID consulted (Dr. Farias), help appreciated * Continue Isoniazid 300 mg and pyridoxine 25 mg * f/u B6 level (send out - will take 3-5 days to receive results) History of HCV * GT 3a, VL 733,151 in June 2017 * MELD score: 13 - estimated 3 month mortality of 6% * GI consulted (Dr. Ceballos), help appreciated * Monitor LFTs Prophylaxis * Heparin c/i due to thrombocytopenia * Protonix BID AC
[2017-10-18] MEDS ORDERED: HYDROmorphone 0.5 mg/0.5 ml ISec IVP PRN (09:59)
[2017-10-18] MEDS ORDERED: Midazolam 2 MG/2 ML VIAL ONE (10:42)
[2017-10-18] MEDS ORDERED: Propofol 10 mg/ml Inj (20 ML) ONE ×2 (10:42)
[2017-10-18] MEDS ORDERED: Lactated Ringer's 1,000 ML IV ONE (10:46)
[2017-10-18] MEDS: Sucralfate 1 gm/10 ml Oral Susp UD PO SCH ×3 (10:58→17:05)
--- NOTE | 2017-10-18 11:13 | CP.PCM.PN ---
Subjective - Date & Time of Evaluation Date of Evaluation: 10/18/17 Time of Evaluation: 11:09 - Subjective Subjective: Patient seen and examined, continues to complain of diffuse abdominal pain. Denies nausea, vomiting, fever/chills. s/p EGD with variceal band ligation, gastritis. Objective - Vital Signs/Intake and Output Vital Signs (last 24 hours): Temp Pulse Resp BP Pulse Ox 98.2 F 62 20 130/74 98 10/18/17 10:45 10/18/17 10:45 10/18/17 10:45 10/18/17 10:45 10/18/17 10:45 Intake and Output: 10/18/17 10/18/17 06:59 18:59 Intake Total 1460 800 Balance 1460 800 - Medications Medications: Current Medications Heparin Sodium (Porcine) (Heparin) 5,000 units SC Q12 [facility] Last Admin: 10/16/17 21:41 Dose: 5,000 units Lactated Ringer's (Lactated Ringer's) 1,000 mls @ 120 mls/hr IV .Q8H20M [facility] Last Admin: 10/17/17 22:38 Dose: 120 mls/hr Piperacillin Sod/Tazobactam Sod (Zosyn 3.375 Gm Iv Premix) 3.375 gm in 50 mls @ 200 mls/hr IVPB Q6H [facility] PRN Reason: Protocol Last Admin: 10/18/17 09:59 Dose: Not Given Isoniazid (Niazid) 300 mg PO DAILY [facility] PRN Reason: Protocol Last Admin: 10/18/17 10:58 Dose: Not Given Ondansetron HCl (Zofran Inj) 4 mg IVP Q6 PRN PRN Reason: Nausea/Vomiting Pantoprazole Sodium (Protonix Ec Tab) 40 mg PO BIDAC [facility] Last Admin: 10/18/17 06:35 Dose: 40 mg Pyridoxine HCl (Vitamin B6) 25 mg PO DAILY [facility] Last Admin: 10/18/17 10:58 Dose: Not Given Sucralfate (Carafate Oral Susp) 1 gm PO TID [facility] Stop: 10/21/17 10:01 Last Admin: 10/18/17 10:58 Dose: Not Given - Labs Labs: 10/18/17 07:01 10/18/17 07:01 PT 14.5 SECONDS (9.7-12.2) H 04/19/18 07:01 INR 1.3 10/18/17 07:01 Assessment and Plan - Assessment and Plan (Free Text) Assessment: Decompensated HCV cirrhosis Anemia Latent TB Abdominal pain - acute cholecystitis s/p EGD today showing grade II esophageal/gastric varices s/p band ligation, gastritis. No bleeding present on examination. Plan: - Clear liquid diet x 24 hours, advance slowly as tolerated - Continue with PPI therapy - Continue with antibiotic therapy - Follow up surgical recommendations for potential cholecystectomy - Patient will require outpatient follow up and repeat EGD within 2 months for variceal surveillance along with H pylori therapy - No further inpatient planned GI interventions, will sign off case. Please reconsult as necessary, thank you.
--- NOTE | 2017-10-18 12:04 | CARD ---
APPROVED REPORT EKG Measurement Heart [id number] <Conclusion> Normal sinus rhythm Possible Left atrial enlargement Borderline ECG
[2017-10-18] MEDS ORDERED: Phytonadione 10 mg/ml Inj (Adult) IVPB ONE (13:45)
[2017-10-18] MEDS ORDERED: Phytonadione 10 MG in Sodium Chloride 0.9% 50 ML IV ONE (14:00)
--- NOTE | 2017-10-18 18:56 | CP.PCM.PN ---
Subjective - Date & Time of Evaluation Date of Evaluation: 10/18/17 Time of Evaluation: 09:00 - Subjective Subjective: continues to complain of diffuse abdominal pain. Denies nausea, vomiting, fever /chills. Objective - Vital Signs/Intake and Output Vital Signs (last 24 hours): Temp Pulse Resp BP Pulse Ox 98.9 F 58 L 20 115/66 97 10/18/17 15:45 10/18/17 15:45 10/18/17 15:45 10/18/17 15:45 10/18/17 15:45 Intake and Output: 10/18/17 10/18/17 06:59 18:59 Intake Total 1460 1510 Balance 1460 1510 - Medications Medications: Current Medications Heparin Sodium (Porcine) (Heparin) 5,000 units SC Q12 [facility] Last Admin: 10/16/17 21:41 Dose: 5,000 units Lactated Ringer's (Lactated Ringer's) 1,000 mls @ 120 mls/hr IV .Q8H20M [facility] Last Admin: 10/18/17 16:37 Dose: Not Given Piperacillin Sod/Tazobactam Sod (Zosyn 3.375 Gm Iv Premix) 3.375 gm in 50 mls @ 200 mls/hr IVPB Q6H [facility] PRN Reason: Protocol Last Admin: 10/18/17 14:12 Dose: 200 mls/hr Isoniazid (Niazid) 300 mg PO DAILY [facility] PRN Reason: Protocol Last Admin: 10/18/17 10:58 Dose: Not Given Ondansetron HCl (Zofran Inj) 4 mg IVP Q6 PRN PRN Reason: Nausea/Vomiting Pantoprazole Sodium (Protonix Ec Tab) 40 mg PO BIDAC [facility] Last Admin: 10/18/17 17:05 Dose: 40 mg Pyridoxine HCl (Vitamin B6) 25 mg PO DAILY [facility] Last Admin: 10/18/17 10:58 Dose: Not Given Sucralfate (Carafate Oral Susp) 1 gm PO TID [facility] Stop: 10/21/17 10:01 Last Admin: 10/18/17 17:05 Dose: 1 gm - Labs Labs: 10/18/17 07:01 10/18/17 07:01 PT 14.5 SECONDS (9.7-12.2) H 10/18/17 07:01 INR 1.3 10/18/17 07:01 - Constitutional Appears: Non-toxic, Chronically Ill - Head Exam Head Exam: NORMOCEPHALIC - Eye Exam Eye Exam: absent: Scleral icterus - ENT Exam ENT Exam: Mucous Membranes Dry - Neck Exam Neck Exam: absent: Lymphadenopathy - Respiratory Exam Respiratory Exam: Decreased Breath Sounds - Cardiovascular Exam Cardiovascular Exam: REGULAR RHYTHM - GI/Abdominal Exam GI & Abdominal Exam: Distended, Soft - Rectal Exam Rectal Exam: Deferred - Exam Exam: NORMAL INSPECTION Assessment and Plan (1) Hepatitis C infection Status: Acute (2) Latent tuberculosis infection Status: Acute (3) Cholecystitis Status: Acute (4) Cirrhosis Status: Acute (5) Elevated liver enzymes Status: Acute - Assessment and Plan (Free Text) Assessment: HCV cirrhosis Anemia Latent TB acute cholecystitis grade II esophageal/gastric varices s/p band ligation, gastritis. cont iv antibiotics surg eval for cholecystectomy cont TB meds
[2017-10-18] MEDS ORDERED: Tramadol 25 mg PO ONE (22:00)
[2017-10-19] MEDS: Piperacill/Tazo 3.375gm in Dex 3.375 GM/50 ML BAG IVPB SCH ×4 (04:07→21:40)
[2017-10-19] MEDS: Lactated Ringer's 1,000 ML IV SCH ×2 (04:07→10:33)
[2017-10-19] MEDS ORDERED: Bupivacaine-Epi 0.5%-1:200,000 PF Inj IJ ONE (08:17)
[2017-10-19] MEDS: Pantoprazole 40 mg EC Tab PO SCH ×2 (08:21→19:08)
[2017-10-19] MEDS ORDERED: Propofol 10 mg/ml Inj (20 ML) ONE (08:43)
[2017-10-19] MEDS ORDERED: Midazolam 2 MG/2 ML VIAL ONE (08:43)
[2017-10-19 08:53] LABS: BASO % 0.5 % (0.0-2.0); EOS # 0.2 K/uL (0.0-0.7); HEMOGLOBIN 12.4 g/dL (12.0-18.0); LYMPH # 1.7 K/uL (1.0-4.3); LYMPH % 32.2 % (20.0-40.0); MEAN CELL VOLUME 82.1 fL (80.0-94.0); MEAN CORPUSCULAR HEMOGLOBIN 27.8 pg (27.0-31.0); MEAN CORPUSCULAR HGB CONC 33.9 g/dL (33.0-37.0); MEAN PLATELET VOLUME 8.9 fL (7.2-11.7); MONO # 0.5 K/uL (0.0-0.8); MONO % 8.9 % (0.0-10.0); NEUT # 2.9 K/uL (1.8-7.0); NEUT % 54.4 % (50.0-75.0); RBC 4.44 Mil/uL (4.40-5.90); WHITE BLOOD COUNT 5.3 K/uL (4.8-10.8)
[2017-10-19 08:58] LABS: INR 1.3; PROTHROMBIN TIME 14.4 SECONDS (9.7-12.2)
[2017-10-19 09:06] LABS: ALB/GLOB RATIO 0.8 (1.0-2.1); ALBUMIN 3.4 g/dL (3.5-5.0); ALT/SGPT 91 U/L (21-72); AST/SGOT 172 U/L (17-59); BLOOD UREA NITROGEN 6 mg/dL (9-20); CALCIUM 8.4 mg/dl (8.6-10.4); GFR AFRICAN-AMERICAN > 60; GFR NON-AFRICAN AMERICAN > 60
[2017-10-19] MEDS: Sucralfate 1 gm/10 ml Oral Susp UD PO SCH ×3 (10:33→19:08)
[2017-10-19] MEDS ORDERED: Iohexol 240 (50 ml) ONE (10:58)
[2017-10-19] MEDS ORDERED: Neostigmine Methylsulfate 3mg/3ml Syringe IV ONE (12:32)
[2017-10-19] MEDS ORDERED: Tramadol 25 mg PO PRN (12:58)
--- NOTE | 2017-10-19 13:02 | PCM.SURG1 ---
Surgeon's Initial Post Op Note - Surgeon's Notes Surgeon: Dr. Sigala Export Clerk: Dr. Terrazas, PGY-3, Dr. Mccallum PGY-2, Luke Crum MS3 Type of Anesthesia: General Endo Anesthesia Administered By: Dr. Steiner Pre-Operative Diagnosis: Acute Cholecystitis Operative Findings: See operative report Post-Operative Diagnosis: Same Operation Performed: Laparoscopic Cholecystectomy with IOC & Umbilical Hernia Repair Specimen/Specimens Removed: gallbladder Estimated Blood Loss: EBL {In ML}: 10 Blood Products Given: N/A Drains Used: No Drains Post-Op Condition: Good Date of Surgery/Procedure: 10/19/17 Time of Surgery/Procedure: 13:02
[2017-10-19] MEDS ORDERED: Morphine 4 MG/ML VIAL ONE (13:32)
[2017-10-19] MEDS: Morphine 4 MG/ML VIAL IVP PRN ×2 (14:46→19:06)
--- NOTE | 2017-10-19 15:06 | RAD ---
PROCEDURE: Fluoroscopy up to 1 hr. HISTORY: CHOLECYSTITIS/CHOLELITHIASIS COMPARISON: None TECHNIQUE: Standard protocol for this study/examination. FINDINGS: Total fluoroscopic time (continuous mode) utilized during the procedure 87.8 (seconds). 0.260 mGy per meter squared IMPRESSION: Submitted images from the current procedure: Greater than 10
--- NOTE | 2017-10-19 15:56 | CP.PCM.PN ---
Subjective - Date & Time of Evaluation Date of Evaluation: 10/19/17 Time of Evaluation: 07:30 - Subjective Subjective: Patient seen and examined at bedside. Patient resting comfortably in bed with no new complaints at this time. Patient having less pain today but still feels fatigued. denies fever, chills, headache, chest pain, SOB, palpitations, cough, n/v/d/c, calf pain and lower extremity swelling. Patient seen again postop. Pain well controlled and patient doing well without complications. Objective - Vital Signs/Intake and Output Vital Signs (last 24 hours): Temp Pulse Resp BP Pulse Ox 97.9 F 74 20 148/78 98 10/19/17 14:40 10/19/17 14:40 10/19/17 14:40 10/19/17 14:40 10/19/17 14:40 Intake and Output: 10/19/17 10/19/17 06:59 18:59 Intake Total 1460 1927 Balance 1460 1927 - Medications Medications: Current Medications Heparin Sodium (Porcine) (Heparin) 5,000 units SC Q12 [facility] Last Admin: 10/16/17 21:41 Dose: 5,000 units Piperacillin Sod/Tazobactam Sod (Zosyn 3.375 Gm Iv Premix) 3.375 gm in 50 mls @ 200 mls/hr IVPB Q6H [facility] PRN Reason: Protocol Last Admin: 10/19/17 14:46 Dose: 200 mls/hr Isoniazid (Niazid) 300 mg PO DAILY [facility] PRN Reason: Protocol Last Admin: 10/19/17 10:33 Dose: Not Given Morphine Sulfate (Morphine) 4 mg IVP Q4H PRN PRN Reason: Pain, severe (8-10) Stop: 10/20/17 12:59 Last Admin: 10/19/17 14:46 Dose: 4 mg Ondansetron HCl (Zofran Inj) 4 mg IVP Q6 PRN PRN Reason: Nausea/Vomiting Pantoprazole Sodium (Protonix Ec Tab) 40 mg PO BIDAC [facility] Last Admin: 10/19/17 08:21 Dose: Not Given Pyridoxine HCl (Vitamin B6) 25 mg PO DAILY [facility] Last Admin: 10/19/17 10:33 Dose: Not Given Sucralfate (Carafate Oral Susp) 1 gm PO TID [facility] Stop: 10/21/17 10:01 Last Admin: 10/19/17 14:15 Dose: Not Given Tramadol HCl (Ultram) 25 mg PO Q6H PRN PRN Reason: Pain, moderate (4-7) - Labs Labs: 10/19/17 08:45 10/19/17 08:45 PT 14.4 SECONDS (9.7-12.2) H 10/19/17 08:45 INR 1.3 10/19/17 08:45 - Additional Findings Additional findings: - Constitutional Appears: Non-toxic, No Acute Distress - Head Exam Head Exam: ATRAUMATIC, NORMAL INSPECTION, NORMOCEPHALIC - Eye Exam Eye Exam: EOMI, PERRL, Scleral icterus - ENT Exam ENT Exam: Mucous Membranes Moist - Respiratory Exam Respiratory Exam: Clear to Ausculation Bilateral, NORMAL BREATHING PATTERN - Cardiovascular Exam Cardiovascular Exam: RRR, +S1, +S2 - GI/Abdominal Exam GI & Abdominal Exam: Tenderness (appropriate post op tenderness), Soft, Decreased Bowel Sounds. absent: Distended Bandages clean/dry/intact - Extremities Exam Extremities Exam: absent: Calf Tenderness, Pedal Edema Additional comments: LEFT arm: 2 small (3-4 cm) subcutaneous, mobile, nontender masses overlying the bicep muscle - Back Exam Back Exam: tenderness (right low flank with subcutaneous mass similar to that described in the left arm above) - Neurological Exam Neurological Exam: Alert, Awake, Oriented x3 - Psychiatric Exam Psychiatric exam: Normal Affect, Normal Mood - Skin Skin Exam: Dry, Intact, Warm Assessment and Plan - Assessment and Plan (Free Text) Plan: Disposition: Patient s/p cholecystectomy POD #0. Abdominal pain * Afebrile since 10/16 (100.7 F), leukopenia * Transaminitis and elevated T Bili * Lipase 173 on admission * History of H. Pylori as seen on biopsy done by Dr. Ceballos on 09/10 - patient completed treatment for this * Abdominal US (10/16): 1. Cholelithiasis with associated gallbladder wall thickening measuring up to 6.5 millimeters as well as gallbladder wall edema. Gallbladder calculus measures up to 1.9 centimeters. These findings may represent an acute cholecystitis. Clinical correlation and or correlation with nuclear medicine study may be helpful if clinically indicated. 2. Nodular and cirrhotic contour of the liver with associated increased echogenicity of the hepatic parenchymal cortex suggestive for fatty infiltration versus hepatic parenchymal disease. Clinical correlation. Previously noted 1 centimeter lesion in the left hepatic lobe on CT scan was not well imaged on the current study. 3. Limited visualization of the pancreas. * CXR: Mild venous congestion. Left hilar prominence. Biapical pleural thickening. Tortuous aorta. * CT abdomen: Distended gallbladder contains gallstones and surrounding with small pericholecystic fluid demonstrates diffuse wall thickening. Correlate clinically for cholecystitis. No evidence of biliary obstruction. Cirrhotic manifestation of the liver again noted. The portal vein is patent. Splenomegaly likely related to portal hypertension. Bibasilar atelectasis and possible trace pleural effusion. * General Surgery consulted (Dr. Sgiala), help appreciated * Cholecystectomy 10/19 * GI consulted (Dr. Ceballos), help appreciated * Patient had esophageal varices banded in August 2017 * EGD on 10/18 * avoid NSAIDs * ID consulted (Dr. Farias), help appreciated * blood cultures negative * Zosyn 3.375 g IV Q6 * Protonix BID AC * Zofran 4 mg PRN * Dilaudid 0.5 mg PRN severe pain * LR @ 120 * carafate 1 g TID Generalized Body Aches * Flu negative * Immunology workup from Jun 2017 and Aug 2017: positive results for RF IgA and IgM (9 and 41, respectively), negative ZEV 6 profile, negative anti- mitochondrial Ab, negative anti-smooth muscle Ab, negative CCP IgG, HIV/Lyme/ RPR negative Thrombocytopenia, Pancytopenia * Possibly secondary to isoniazid therapy vs HCV * Hold heparin * Platelet function assay (10/18): 48 * Patient transfused with platelets on 10/19 * Monitor with AM labs History of TB diagnosed Jun 2017 * ID consulted (Dr. Farias), help appreciated * Continue Isoniazid 300 mg and pyridoxine 25 mg * f/u B6 level (send out - will take 3-5 days to receive results) History of HCV * GT 3a, VL 733,151 in June 2017 * MELD score: 13 - estimated 3 month mortality of 6% * GI consulted (Dr. Ceballos), help appreciated * Monitor LFTs Prophylaxis * Heparin c/i due to thrombocytopenia * Protonix BID AC
--- NOTE | 2017-10-19 18:31 | CP.PCM.PN ---
Subjective - Date & Time of Evaluation Date of Evaluation: 10/19/17 Time of Evaluation: 09:00 - Subjective Subjective: events noted afeb still with some discomfort NAD LFT's stable Objective - Vital Signs/Intake and Output Vital Signs (last 24 hours): Temp Pulse Resp BP Pulse Ox 97.9 F 91 H 20 143/79 97 10/19/17 16:26 10/19/17 16:26 10/19/17 16:26 10/19/17 16:26 10/19/17 16:26 Intake and Output: 10/19/17 10/19/17 06:59 18:59 Intake Total 1460 1927 Balance 1460 1927 - Medications Medications: Current Medications Heparin Sodium (Porcine) (Heparin) 5,000 units SC Q12 [facility] Last Admin: 10/16/17 21:41 Dose: 5,000 units Piperacillin Sod/Tazobactam Sod (Zosyn 3.375 Gm Iv Premix) 3.375 gm in 50 mls @ 200 mls/hr IVPB Q6H [facility] PRN Reason: Protocol Last Admin: 10/19/17 14:46 Dose: 200 mls/hr Isoniazid (Niazid) 300 mg PO DAILY [facility] PRN Reason: Protocol Last Admin: 10/19/17 10:33 Dose: Not Given Morphine Sulfate (Morphine) 4 mg IVP Q4H PRN PRN Reason: Pain, severe (8-10) Stop: 10/20/17 12:59 Last Admin: 10/19/17 14:46 Dose: 4 mg Ondansetron HCl (Zofran Inj) 4 mg IVP Q6 PRN PRN Reason: Nausea/Vomiting Pantoprazole Sodium (Protonix Ec Tab) 40 mg PO BIDAC [facility] Last Admin: 10/19/17 08:21 Dose: Not Given Pyridoxine HCl (Vitamin B6) 25 mg PO DAILY [facility] Last Admin: 10/19/17 10:33 Dose: Not Given Sucralfate (Carafate Oral Susp) 1 gm PO TID [facility] Stop: 10/21/17 10:01 Last Admin: 10/19/17 14:15 Dose: Not Given Tramadol HCl (Ultram) 25 mg PO Q6H PRN PRN Reason: Pain, moderate (4-7) - Labs Labs: 10/19/17 08:45 04/20/18 08:45 PT 14.4 SECONDS (9.7-12.2) H 10/19/17 08:45 INR 1.3 10/19/17 08:45 - Constitutional Appears: Non-toxic, Chronically Ill - Head Exam Head Exam: NORMOCEPHALIC - Eye Exam Eye Exam: PERRL - ENT Exam ENT Exam: Mucous Membranes Dry - Neck Exam Neck Exam: absent: Lymphadenopathy - Respiratory Exam Respiratory Exam: Decreased Breath Sounds - Cardiovascular Exam Cardiovascular Exam: REGULAR RHYTHM - GI/Abdominal Exam GI & Abdominal Exam: Distended, Soft, Tenderness - Rectal Exam Rectal Exam: Deferred Assessment and Plan (1) Hepatitis C infection Status: Acute (2) Latent tuberculosis infection Status: Acute (3) Cholecystitis Status: Acute (4) Cirrhosis Status: Acute (5) Elevated liver enzymes Status: Acute
[2017-10-19] MEDS ORDERED: Tramadol 25 mg PO ONE (21:15)
--- NOTE | 2017-10-19 23:54 | OP ---
PROCEDURE DATE: 10/19/2017 PREOPERATIVE DIAGNOSES: Acute cholecystitis and cholelithiasis, liver cirrhosis, umbilical hernia. FINDINGS OF SURGERY: There is a small umbilical hernia noted. The liver is markedly enlarged, multiple cirrhotic nodules were noted. Some adhesions were noted on the surface and also on the dome of the liver. The gallbladder is markedly distended, enlarged, and has a very large amount of edema, especially around the cholecystoduodenal ligament area. DESCRIPTION OF PROCEDURE: Under general anesthesia, the patient was prepared and draped in usual sterile fashion. First an incision was made on the inferior portion of the umbilicus. Dissection was carried out to mobilize the hernia. The fascia was dissected free and visualized well. The hernia defect was then identified. A 10-mm trocar was inserted through which a CO2 was insufflated to about 15 mmHg pressure. A right upper quadrant port and epigastric ports were inserted. The patient was placed in a reverse Trendelenburg position, turned over towards the left side. The gallbladder was then grasped at the fundus and then re-grasped with the ampulla, traction was applied. Cystic duct and cystic arteries were then isolated. There was a node that was also removed. The cystic artery was transected between the hemoclips. On the upper portion of the cholecystoduodenal ligament area, there is a tubular structure that went directly into the gallbladder. , this was the cystic duct but it was sutured because of the high level of its existence and almost posterior. Therefore, a cholangiograft was inserted. The cholangiogram was performed, and with some difficulty, we finally identified the hepatic radicles and also the common duct. This made assure that the tubular structure we are dealing with is the cystic duct. It was therefore transected between hemoclips and then the gallbladder was removed from the liver bed with electrocautery and was extracted through the umbilical port. The hernia repair was done by multiple sutures of 0 Vicryl, and the fascia and the skin were closed with multiple subcuticular sutures of 4-0 Monocryl. Estimated blood loss was 100 mL. The patient tolerated the procedure well at the operating room in good condition. Tevin Sigala MD
[2017-10-20] MEDS: Morphine 4 MG/ML VIAL IVP PRN (00:02)
[2017-10-20] MEDS: Piperacill/Tazo 3.375gm in Dex 3.375 GM/50 ML BAG IVPB SCH ×4 (03:00→21:35)
[2017-10-20] MEDS: Pantoprazole 40 mg EC Tab PO SCH ×2 (06:37→17:09)
--- NOTE | 2017-10-20 08:21 | CP.PCM.PN ---
Subjective - Date & Time of Evaluation Date of Evaluation: 10/20/17 Time of Evaluation: 06:40 - Subjective Subjective: Patient seen and examined at bedside this AM. No adverse events overnight. Patient complains of some pain but denies nausea and vomiting, tolerated CLD. Objective - Vital Signs/Intake and Output Vital Signs (last 24 hours): Temp Pulse Resp BP Pulse Ox 98.2 F 83 20 137/79 98 10/19/17 23:55 10/19/17 23:55 10/19/17 23:55 10/19/17 23:55 10/19/17 23:55 - Medications Medications: Current Medications Heparin Sodium (Porcine) (Heparin) 5,000 units SC Q12 [facility] Last Admin: 10/16/17 21:41 Dose: 5,000 units Piperacillin Sod/Tazobactam Sod (Zosyn 3.375 Gm Iv Premix) 3.375 gm in 50 mls @ 200 mls/hr IVPB Q6H [facility] PRN Reason: Protocol Last Admin: 10/20/17 03:00 Dose: 200 mls/hr Isoniazid (Niazid) 300 mg PO DAILY [facility] PRN Reason: Protocol Last Admin: 10/19/17 10:33 Dose: Not Given Ondansetron HCl (Zofran Inj) 4 mg IVP Q6 PRN PRN Reason: Nausea/Vomiting Pantoprazole Sodium (Protonix Ec Tab) 40 mg PO BIDAC [facility] Last Admin: 10/20/17 06:37 Dose: 40 mg Pyridoxine HCl (Vitamin B6) 25 mg PO DAILY [facility] Last Admin: 10/19/17 10:33 Dose: Not Given Sucralfate (Carafate Oral Susp) 1 gm PO TID [facility] Stop: 10/21/17 10:01 Last Admin: 10/19/17 19:08 Dose: 1 gm Tramadol HCl (Ultram) 25 mg PO Q6H PRN PRN Reason: Pain, moderate (4-7) Last Admin: 10/20/17 06:57 Dose: 25 mg - Labs Labs: 10/19/17 08:45 10/19/17 08:45 PT 14.4 SECONDS (9.7-12.2) H 10/19/17 08:45 INR 1.3 10/19/17 08:45 - Constitutional Appears: Well, Non-toxic, No Acute Distress - Head Exam Head Exam: ATRAUMATIC, NORMOCEPHALIC - Eye Exam Eye Exam: Normal appearance. absent: Conjunctival injection, Scleral icterus - ENT Exam ENT Exam: Mucous Membranes Moist, Normal Oropharynx - Respiratory Exam Respiratory Exam: NORMAL BREATHING PATTERN. absent: Accessory Muscle Use, Respiratory Distress - Cardiovascular Exam Cardiovascular Exam: RRR - GI/Abdominal Exam GI & Abdominal Exam: Soft, Tenderness (RUQ). absent: Distended, Rebound Additional comments: dressings C/D/I - Extremities Exam Extremities Exam: absent: Calf Tenderness, Pedal Edema, Tenderness - Neurological Exam Neurological Exam: Alert, Awake, Oriented x3 - Psychiatric Exam Psychiatric exam: Normal Affect, Normal Mood - Skin Skin Exam: Dry, Intact, Normal Color, Warm Assessment and Plan - Assessment and Plan (Free Text) Assessment: 62M POD#1 s/p laparoscopic cholecystectomy Plan: -Advance to low fat diet today -PO pain medication -Encourage ambulation and incentive spirometer use -If patient is able to tolerate PO diet, pain well controlled on PO pain medicine, and ambulating patient is clear for discharge from a surgical standpoint with follow up with Dr. Sigala in his office in 1 week -Will follow up AM labs -No heavy lifting for 4 weeks, may take off umbilical dressing on 10/21 and shower then. Low fat diet for 3-4 weeks. Return to ER for fever >100.4, severe pain, or any other concerning symptoms. Discussed with Dr. Zakiya Mccallum, PGY2
[2017-10-20 08:57] LABS: BASO % 0.4 % (0.0-2.0); EOS # 0.1 K/uL (0.0-0.7); HEMOGLOBIN 11.6 g/dL (12.0-18.0); LYMPH # 0.7 K/uL (1.0-4.3); LYMPH % 9.9 % (20.0-40.0); MEAN CELL VOLUME 82.6 fL (80.0-94.0); MEAN CORPUSCULAR HEMOGLOBIN 28.1 pg (27.0-31.0); MEAN PLATELET VOLUME 9.6 fL (7.2-11.7); MONO # 0.5 K/uL (0.0-0.8); MONO % 7.3 % (0.0-10.0); NEUT # 6.1 K/uL (1.8-7.0); NEUT % 81.4 % (50.0-75.0); PLATELET COUNT 77 K/uL (130-400); RBC 4.11 Mil/uL (4.40-5.90); RED CELL DISTRIBUTION WIDTH 14.1 % (11.5-14.5); WHITE BLOOD COUNT 7.5 K/uL (4.8-10.8)
[2017-10-20 09:21] LABS: ALB/GLOB RATIO 0.8 (1.0-2.1); ALBUMIN 3.2 g/dL (3.5-5.0); ALT/SGPT 83 U/L (21-72); AST/SGOT 156 U/L (17-59); BLOOD UREA NITROGEN 7 mg/dL (9-20); CALCIUM 7.4 mg/dl (8.6-10.4); GFR AFRICAN-AMERICAN > 60; GFR NON-AFRICAN AMERICAN > 60
[2017-10-20] MEDS: Sucralfate 1 gm/10 ml Oral Susp UD PO SCH ×3 (09:21→17:09)
[2017-10-20 09:29] LABS: INR 1.3; PROTHROMBIN TIME 14.9 SECONDS (9.7-12.2)
[2017-10-20] MEDS ORDERED: Morphine 4 MG/ML VIAL IV ONE (10:58)
--- NOTE | 2017-10-20 11:01 | CP.PCM.PN ---
Subjective - Date & Time of Evaluation Date of Evaluation: 10/20/17 Time of Evaluation: 10:00 - Subjective Subjective: Patient was seen and examined by me. He was slowly eating his breakfast. With the help of his family member translating for us. As mentioned previously he has just 10/19 undergone lasprescopic cholesectomy POD #1. He didn't have the incentive spirometry at bedside so we'll get that for him. as well as EGD on 10/18 which showed esophageal/gastric varices and no bleeding present I explained to the patient and family that probably will be discharged soon Objective - Vital Signs/Intake and Output Vital Signs (last 24 hours): Temp Pulse Resp BP Pulse Ox 98.6 F 96 H 20 134/76 95 10/20/17 07:56 10/20/17 07:56 10/20/17 07:56 10/20/17 07:56 10/20/17 07:56 - Medications Medications: Current Medications Heparin Sodium (Porcine) (Heparin) 5,000 units SC Q12 [facility] Last Admin: 10/16/17 21:41 Dose: 5,000 units Piperacillin Sod/Tazobactam Sod (Zosyn 3.375 Gm Iv Premix) 3.375 gm in 50 mls @ 200 mls/hr IVPB Q6H [facility] PRN Reason: Protocol Last Admin: 10/20/17 09:21 Dose: 200 mls/hr Isoniazid (Niazid) 300 mg PO DAILY [facility] PRN Reason: Protocol Last Admin: 10/20/17 09:21 Dose: 300 mg Morphine Sulfate (Morphine) 2 mg IVP ONCE ONE Stop: 10/20/17 09:20 Ondansetron HCl (Zofran Inj) 4 mg IVP Q6 PRN PRN Reason: Nausea/Vomiting Pantoprazole Sodium (Protonix Ec Tab) 40 mg PO BIDAC [facility] Last Admin: 10/20/17 06:37 Dose: 40 mg Pyridoxine HCl (Vitamin B6) 25 mg PO DAILY [facility] Last Admin: 10/20/17 09:20 Dose: 25 mg Sucralfate (Carafate Oral Susp) 1 gm PO TID [facility] Stop: 10/21/17 10:01 Last Admin: 10/20/17 09:21 Dose: 1 gm Tramadol HCl (Ultram) 25 mg PO Q6H PRN PRN Reason: Pain, moderate (4-7) Last Admin: 10/20/17 06:57 Dose: 25 mg - Labs Labs: 10/20/17 08:48 10/20/17 08:48 PT 14.9 SECONDS (9.7-12.2) H 10/20/17 08:48 INR 1.3 10/20/17 08:48 - Constitutional Appears: Well, Non-toxic - Head Exam Head Exam: ATRAUMATIC, NORMAL INSPECTION, NORMOCEPHALIC - Eye Exam Eye Exam: EOMI, Normal appearance - ENT Exam ENT Exam: Mucous Membranes Moist - Respiratory Exam Respiratory Exam: Clear to Ausculation Bilateral, NORMAL BREATHING PATTERN - Cardiovascular Exam Cardiovascular Exam: REGULAR RHYTHM - GI/Abdominal Exam GI & Abdominal Exam: Soft, Tenderness, Normal Bowel Sounds. absent: Distended, Firm, Guarding, Rigid - Neurological Exam Neurological Exam: Alert, Awake, Oriented x3 Neuro motor strength exam: Left Upper Extremity: 5, Right Upper Extremity: 5, Left Lower Extremity: 5, Right Lower Extremity: 5 - Psychiatric Exam Psychiatric exam: Depressed, Flat Affect - Skin Skin Exam: Normal Color, Warm Assessment and Plan - Assessment and Plan (Free Text) Assessment: Disposition: Patient s/p cholecystectomy POD #1 and EGD day 2 Abdominal pain, cholecystitis 10/20: Stable CBC. He had a small fever this morning not yet recorded in system. He received Tylenol. He tolerated liquid diet. The blood cultures negative for 48 hrs. Will get incentive spirometry. * Transaminitis and elevated T Bili * Lipase 173 on admission * History of H. Pylori as seen on biopsy done by Dr. Ceballos on 09/10 - patient completed treatment for this * Abdominal US (10/16): 1. Cholelithiasis with associated gallbladder wall thickening measuring up to 6.5 millimeters as well as gallbladder wall edema. Gallbladder calculus measures up to 1.9 centimeters. These findings may represent an acute cholecystitis. Clinical correlation and or correlation with nuclear medicine study may be helpful if clinically indicated. 2. Nodular and cirrhotic contour of the liver with associated increased echogenicity of the hepatic parenchymal cortex suggestive for fatty infiltration versus hepatic parenchymal disease. Clinical correlation. Previously noted 1 centimeter lesion in the left hepatic lobe on CT scan was not well imaged on the current study. 3. Limited visualization of the pancreas. * CXR: Mild venous congestion. Left hilar prominence. Biapical pleural thickening. Tortuous aorta. * CT abdomen: Distended gallbladder contains gallstones and surrounding with small pericholecystic fluid demonstrates diffuse wall thickening. Correlate clinically for cholecystitis. No evidence of biliary obstruction. Cirrhotic manifestation of the liver again noted. The portal vein is patent. Splenomegaly likely related to portal hypertension. Bibasilar atelectasis and possible trace pleural effusion. * General Surgery consulted (Dr. Sigala), help appreciated * Cholecystectomy 10/19 * GI consulted (Dr. Ceballos), help appreciated * Patient had esophageal varices banded in August 2017 * EGD on 10/18 * avoid NSAIDs * ID consulted (Dr. Farias), help appreciated * Zosyn 3.375 g IV Q6 * Protonix BID AC * Zofran 4 mg PRN * LR @ 120 * carafate 1 g TID Generalized Body Aches * Flu negative * Immunology workup from Jun 2017 and Aug 2017: positive results for RF IgA and IgM (9 and 41, respectively), negative ZEV 6 profile, negative anti- mitochondrial Ab, negative anti-smooth muscle Ab, negative CCP IgG, HIV/Lyme/ RPR negative Thrombocytopenia, Pancytopenia 10/20: Platelet count is 77, he just just had transfusion * Possibly secondary to isoniazid therapy vs HCV * Hold heparin * Platelet function assay (10/18): 48 * Patient transfused with platelets on 10/19 * Monitor with AM labs History of TB diagnosed Jun 2017 * ID consulted (Dr. Farias), help appreciated * Continue Isoniazid 300 mg and pyridoxine 25 mg * f/u B6 level (send out - will take 3-5 days to receive results) History of HCV * GT 3a, VL 733,151 in June 2017 * MELD score: 13 - estimated 3 month mortality of 6% * GI consulted (Dr. Ceballos), help appreciated * Monitor LFTs Prophylaxis * Heparin c/i due to thrombocytopenia * Protonix BID AC
[2017-10-20] MEDS: Tramadol 25 mg PO PRN (12:05)
[2017-10-20 12:33] LABS: LYMPHOCYTE 8 % (20-40); MONOCYTE 4 % (0-10); NEUTROPHIL 88 % (50-75); PLATELET ESTIMATE DECREASED (NORMAL); TOTAL CELLS COUNTED 100
[2017-10-20 12:34] LABS: ANISOCYTOSIS SLIGHT; HYPOCHROMIC SLIGHT; POLYCHROMIC SLIGHT; TOXIC GRANULATION PRESENT
[2017-10-20] MEDS ORDERED: Sodium Chloride 0.9% 1,000 ML IV ONE (13:45)
[2017-10-21] MEDS: Piperacill/Tazo 3.375gm in Dex 3.375 GM/50 ML BAG IVPB SCH ×2 (02:41→09:24)
[2017-10-21] MEDS: Tramadol 25 mg PO PRN (02:51)
[2017-10-21] MEDS: Pantoprazole 40 mg EC Tab PO SCH (06:43)
[2017-10-21 08:15] LABS: BASO % 0.5 % (0.0-2.0); EOS # 0.2 K/uL (0.0-0.7); EOS % 2.8 % (0.0-4.0); HEMOGLOBIN 10.7 g/dL (12.0-18.0); LYMPH # 1.6 K/uL (1.0-4.3); LYMPH % 21.6 % (20.0-40.0); MEAN CELL VOLUME 82.6 fL (80.0-94.0); MEAN CORPUSCULAR HEMOGLOBIN 28.2 pg (27.0-31.0); MEAN CORPUSCULAR HGB CONC 34.2 g/dL (33.0-37.0); MEAN PLATELET VOLUME 9.5 fL (7.2-11.7); MONO # 0.8 K/uL (0.0-0.8); MONO % 10.6 % (0.0-10.0); NEUT # 4.8 K/uL (1.8-7.0); NEUT % 64.5 % (50.0-75.0); RBC 3.79 Mil/uL (4.40-5.90); RED CELL DISTRIBUTION WIDTH 14.2 % (11.5-14.5); WHITE BLOOD COUNT 7.4 K/uL (4.8-10.8)
[2017-10-21 08:21] LABS: INR 1.4; PROTHROMBIN TIME 15.7 SECONDS (9.7-12.2)
[2017-10-21 08:35] LABS: ALB/GLOB RATIO 0.8 (1.0-2.1); ALT/SGPT 74 U/L (21-72); AST/SGOT 111 U/L (17-59); BLOOD UREA NITROGEN 5 mg/dL (9-20); CALCIUM 7.7 mg/dl (8.6-10.4); GFR AFRICAN-AMERICAN > 60; GFR NON-AFRICAN AMERICAN > 60
[2017-10-21 08:42] VITALS: BP 128/71; PULSE 90; RESP 20; TEMP 99.9; O2SAT 96
--- NOTE | 2017-10-21 08:43 | CP.PCM.PN ---
Subjective - Date & Time of Evaluation Date of Evaluation: 10/21/17 Time of Evaluation: 07:10 - Subjective Subjective: Patient seen and examined at bedside this AM. Patient states that pain is much improved and he is voiding freely, also states that he was ambulating well. Reports only small amount of PO intake yesterday but had no nausea or vomiting, pain well controlled on tramadol. Objective - Vital Signs/Intake and Output Vital Signs (last 24 hours): Temp Pulse Resp BP Pulse Ox 99.0 F 86 18 125/73 95 10/21/17 00:40 10/21/17 00:40 10/21/17 00:40 10/21/17 00:40 10/21/17 00:40 Intake and Output: 10/21/17 10/21/17 06:59 18:59 Intake Total 450 Output Total 1700 Balance -1250 - Medications Medications: Current Medications Heparin Sodium (Porcine) (Heparin) 5,000 units SC Q12 COUNTS INCLUDE 234 BEDS AT THE [facility] Last Admin: 10/20/17 21:36 Dose: 5,000 units Piperacillin Sod/Tazobactam Sod (Zosyn 3.375 Gm Iv Premix) 3.375 gm in 50 mls @ 200 mls/hr IVPB Q6H ROYER PRN Reason: Protocol Last Admin: 10/21/17 02:41 Dose: 200 mls/hr Isoniazid (Niazid) 300 mg PO DAILY ROYER PRN Reason: Protocol Last Admin: 10/20/17 09:21 Dose: 300 mg Ondansetron HCl (Zofran Inj) 4 mg IVP Q6 PRN PRN Reason: Nausea/Vomiting Pantoprazole Sodium (Protonix Ec Tab) 40 mg PO BIDAC COUNTS INCLUDE 234 BEDS AT THE [facility] Last Admin: 10/21/17 06:43 Dose: 40 mg Pyridoxine HCl (Vitamin B6) 25 mg PO DAILY COUNTS INCLUDE 234 BEDS AT THE [facility] Last Admin: 10/20/17 09:20 Dose: 25 mg Sucralfate (Carafate Oral Susp) 1 gm PO TID COUNTS INCLUDE 234 BEDS AT THE [facility] Stop: 10/21/17 10:01 Last Admin: 10/20/17 17:09 Dose: 1 gm Tramadol HCl (Ultram) 25 mg PO Q4H PRN PRN Reason: Pain, moderate (4-7) Last Admin: 10/21/17 02:51 Dose: 25 mg - Labs Labs: 10/21/17 08:11 10/21/17 08:11 PT 15.7 SECONDS (9.7-12.2) H 10/21/17 08:11 INR 1.4 10/21/17 08:11 - Constitutional Appears: Well, Non-toxic, No Acute Distress - Head Exam Head Exam: ATRAUMATIC, NORMOCEPHALIC - Eye Exam Eye Exam: Normal appearance. absent: Conjunctival injection, Scleral icterus - ENT Exam ENT Exam: Mucous Membranes Moist, Normal Oropharynx - Respiratory Exam Respiratory Exam: NORMAL BREATHING PATTERN. absent: Accessory Muscle Use, Respiratory Distress - Cardiovascular Exam Cardiovascular Exam: RRR - GI/Abdominal Exam GI & Abdominal Exam: Soft, Tenderness (RUQ and jayashree-incisional). absent: Distended Additional comments: incisions well approximated with dermabond, no significant swelling, induration or draining - Neurological Exam Neurological Exam: Alert, Awake, Oriented x3 - Psychiatric Exam Psychiatric exam: Normal Affect, Normal Mood - Skin Skin Exam: Dry, Normal Color, Warm Assessment and Plan - Assessment and Plan (Free Text) Assessment: 62M POD#2 s/p laparoscopic cholecystectomy Plan: -Patient is clear for discharge from a surgical standpoint. Patient should follow up with Dr. Sigala in his office. -Patient may shower today, but not soak. Patient should not lift >10 pounds until cleared to do so by Dr. Sigala. Patient should take stool softeners if he is straining to have a bowel movement. -Patient should call Dr. Sigala's office or come to ER for any severe pain, nausea and vomiting, fever >100.4, or any other concerning symptoms Discussed with Dr. Zakiya Mccallum, PGY2
[2017-10-21] MEDS: Sucralfate 1 gm/10 ml Oral Susp UD PO SCH (09:24)
--- NOTE | 2017-10-21 11:01 | CP.PCM.DIS ---
<Gerber Davidson S - Last Filed: 10/21/17 11:03> Provider - Provider Date of Admission: 10/16/17 10:54 Attending physician: Trevor Harmon DO Time Spent in preparation of Discharge (in minutes): 60 Hospital Course - Lab Results Lab Results: Micro Results 10/17/17 11:46 Blood Blood Culture - Preliminary NO GROWTH AFTER 3 DAYS 10/17/17 12:01 Blood Blood Culture - Preliminary NO GROWTH AFTER 3 DAYS Most Recent Lab Values WBC 7.4 K/uL (4.8-10.8) 10/21/17 08:11 RBC 3.79 Mil/uL (4.40-5.90) L 10/21/17 08:11 Hgb 10.7 g/dL (12.0-18.0) L 10/21/17 08:11 Hct 31.3 % (35.0-51.0) L 10/21/17 08:11 MCV 82.6 fL (80.0-94.0) 10/21/17 08:11 MCH 28.2 pg (27.0-31.0) 10/21/17 08:11 MCHC 34.2 g/dL (33.0-37.0) 10/21/17 08:11 RDW 14.2 % (11.5-14.5) 10/21/17 08:11 Plt Count 66 K/uL (130-400) L 10/21/17 08:11 MPV 9.5 fL (7.2-11.7) 10/21/17 08:11 Neut % (Auto) 64.5 % (50.0-75.0) 10/21/17 08:11 Lymph % (Auto) 21.6 % (20.0-40.0) 10/21/17 08:11 [place] % (Auto) 10.6 % (0.0-10.0) H 10/21/17 08:11 Eos % (Auto) 2.8 % (0.0-4.0) 10/21/17 08:11 Baso % (Auto) 0.5 % (0.0-2.0) 10/21/17 08:11 Neut # (Auto) 4.8 K/uL (1.8-7.0) 10/21/17 08:11 Lymph # (Auto) 1.6 K/uL (1.0-4.3) 10/21/17 08:11 [place] # (Auto) 0.8 K/uL (0.0-0.8) 10/21/17 08:11 Eos # (Auto) 0.2 K/uL (0.0-0.7) 10/21/17 08:11 Baso # (Auto) 0.0 K/uL (0.0-0.2) 10/21/17 08:11 Neutrophils % (Manual) 88 % (50-75) H 10/20/17 08:48 Lymphocytes % (Manual) 8 % (20-40) L 10/20/17 08:48 Monocytes % (Manual) 4 % (0-10) 10/20/17 08:48 Differential Comment 10/19/17 08:45 Toxic Granulation Present 10/20/17 08:48 Platelet Estimate Decreased (NORMAL) L 10/20/17 08:48 Polychromasia Slight 10/20/17 08:48 Hypochromasia (manual) Slight 10/20/17 08:48 Anisocytosis (manual) Slight 10/20/17 08:48 PT 15.7 SECONDS (9.7-12.2) H 10/21/17 08:11 INR 1.4 10/21/17 08:11 Plt Function Assay 48 K/uL 10/18/17 07:01 Sodium 138 mmol/L (132-148) 10/21/17 08:11 Potassium 3.6 mmol/L (3.6-5.2) 10/21/17 08:11 Chloride 99 mmol/L (98-107) 10/21/17 08:11 Carbon Dioxide 27 mmol/L (22-30) 10/21/17 08:11 Anion Gap 15 (10-20) 10/21/17 08:11 BUN 5 mg/dL (9-20) L 10/21/17 08:11 Creatinine 0.7 mg/dL (0.8-1.5) L 10/21/17 08:11 Est GFR ( Amer) > 60 10/21/17 08:11 Est GFR (Non-Af Amer) > 60 10/21/17 08:11 POC Glucose (mg/dL) 104 mg/dL (65-110) 10/16/17 05:15 Random Glucose 141 mg/dL (75-110) H 10/21/17 08:11 Lactic Acid 0.8 mmol/L (0.7-2.1) 10/16/17 05:52 Calcium 7.7 mg/dl (8.6-10.4) L 10/21/17 08:11 Total Bilirubin 1.0 mg/dL (0.2-1.3) 10/21/17 08:11 AST 111 U/L (17-59) H D 10/21/17 08:11 ALT 74 U/L (21-72) H 10/21/17 08:11 Alkaline Phosphatase 65 U/L (38-126) 10/21/17 08:11 Total Protein 6.9 g/dL (6.3-8.3) 10/21/17 08:11 Albumin 3.0 g/dL (3.5-5.0) L 10/21/17 08:11 Globulin 3.9 gm/dL (2.2-3.9) 10/21/17 08:11 Albumin/Globulin Ratio 0.8 (1.0-2.1) L 10/21/17 08:11 Lipase 173 U/L (23-300) 10/16/17 05:41 Urine Color Yellow (YELLOW) 10/16/17 10:15 Urine Clarity Clear (Clear) 10/16/17 10:15 Urine pH 5.0 (5.0-8.0) 10/16/17 10:15 Ur Specific [place] 1.010 (1.003-1.030) 10/16/17 10:15 Urine Protein Negative mg/dL (NEGATIVE) 10/16/17 10:15 Urine Glucose (UA) Normal mg/dL (Normal) 10/16/17 10:15 Urine Ketones Negative mg/dL (NEGATIVE) 10/16/17 10:15 Urine Blood 1+ (NEGATIVE) H 10/16/17 10:15 Urine Nitrate Negative (NEGATIVE) 10/16/17 10:15 Urine Bilirubin Negative (NEGATIVE) 10/16/17 10:15 Urine Urobilinogen Normal mg/dL (0.2-1.0) 10/16/17 10:15 Ur Leukocyte Esterase Neg [place]/uL (Negative) 10/16/17 10:15 Urine WBC (Auto) 1 /hpf (0-5) 10/16/17 10:15 Urine RBC (Auto) < 1 /hpf (0-3) 10/16/17 10:15 Stool Occult Blood Negative (NEGATIVE) 10/17/17 15:40 Influenza Typ A,B (EIA) Negative for flu a/b (NEGATIVE) 10/16/17 14:05 Blood Type B POSITIVE 10/17/17 16:52 Antibody Screen Negative 10/17/17 16:52 - Hospital Course Hospital Course: On admission: Patient is a 62 year old male with a past medical history of HCV with cirrhosis, and tuberculosis, who presents to the ED complaining of abdominal pain. Patient says this started last night and describes it as a constant, crampy, 10/10 pain that is generalized but worse over the right upper quadrant and flank area. Patient says he has not taken any medication for this pain and nothing seems to make it better or worse. Patient also notes feeling like he has a fever although he did not take his temperature and also complains of a burning sensation in his epigastric/low middle chest area. He also admits to generalized body aches that have been going on for months. He denies chills, night sweats, headache, sore throat, bitter taste in mouth, chest pain, SOB, palpitations, cough, n/v/d/c, dysuria, urinary frequency, calf pain, lower extremity swelling, sick contacts, recent travel, and changes in weight. PMD: [facility]: Dr. Ceballos PMH: HCV with cirrhosis, tuberculosis Meds: Vitamin B6 25 mg, Isoniazid 300 mg, Meloxicam 7.5 mg [place]: NKDA PSH: denies FH: denies SH: denies tobacco, alcohol, and drug use After admission Mr. Saldaña's admission an ultrasound of the abdomen was done for suspicion of cholecystitis, which held true. The results of the abdominal ultrasound were corroborated with CT abdomen/pelvis. Dr. Nicholas was consulted to assist from a GI perspective, Dr. Farias for ID input (given hx of TB), and Dr. Sigala for surgical intervention. He was started on IV zosyn and labs were monitored for resolution/improvement/worsening. Blood cultures were drawn and LFT's trended. Pain control was provided via dilaudid with adjusted doses to accommodate pain relief. Dr. Nicholas performed an EGD which exhibited grade II esophageal/gastric varices that were treated with band ligation and gastritis; no bleeding present on EGD examination. Dr. Farias elected to continue treatment for latent TB with INH and B6. Mr Saldaña ultimately underwent laparoscopic cholecystectomy with IOC and umbilical hernia repair on 10/19/17. He tolerated the procedure well with a few episodes of post-op fevers. The blood cultures that were drawn did not have any significant findings i.e. negative. His LFT's were stable. On POD1 Mr. Saldaña had some discomfort and he remained in the hospital. A straight cath was ordered with post void bladder scan on behalf of the surgical team. This was not significant for any urinary retention. There was some suspicion for post-surgical illeus vs dehydration which may have been manifesting as discomfort from constipation, a liter bolus was ordered, and following his bowel movement, Mr. Saldaña was feeling significantly better. On day of discharge he is ambulating without any assistance. He continues to have mild discomfort, which is appropriate. He will be discharged home with amoxicillin 875mg PO BID for 10 days. Ibuprofen may be taken as needed for pain. He will need follow up with [facility] and Dr. Sigala. These instructions were reviewed with the patient and his son Darrion. Discharge Exam - Head Exam Head Exam: ATRAUMATIC, NORMOCEPHALIC - Eye Exam Eye Exam: EOMI - ENT Exam ENT Exam: Mucous Membranes Moist - Respiratory Exam Respiratory Exam: NORMAL BREATHING PATTERN. absent: Rales, Rhonchi, Wheezes - Cardiovascular Exam Cardiovascular Exam: REGULAR RHYTHM, +S1, +S2 - GI/Abdominal Exam Additional comments: appropriately tender given post surgical status wound healing progressing normally - Extremities Exam Extremities exam: normal inspection - Neurological Exam Neurological exam: Alert, Oriented x3 - Psychiatric Exam Psychiatric exam: Normal Affect, Normal Mood - Skin Skin Exam: Dry, Warm Discharge Plan - Discharge Medications Prescriptions: Amoxicillin 875 mg PO BID 10 Days #20 tablet - Follow Up Plan Condition: GUARDED Disposition: HOME/ ROUTINE Instructions: Hepatitis C (DC), Cirrhosis (DC), Gallstones (DC), Amoxicillin Additional Instructions: The patient was seen by Dr. Harmon and Dr. Davidson, he is deemed stable for discharge. He is to follow up with his PMD Dr. Trevino within 1 week. Additionally he was instructed to return to the ED should his condition worsen, not improve, or there is any other concern. He will continue all of the home medications he was taking prior to admission, as follows Vitamin B6 25 mg PO daily Isoniazid 300 mg Additionally he will be given a prescription for amoxicillin 875mg PO BID for a total of 10 days. This medication is to be taken to completion. He may use OTC ibuprofen 600mg PO TID PRN for pain. These instructions were discussed with the patient who understands and agrees. Additionally his proxy, son Darrion was contacted at the following number and these instructions were also relayed to him, . <Trevor Hramon - Last Filed: 10/21/17 11:58> Provider - Provider Date of Admission: 10/16/17 10:54 Attending physician: Trevor Harmon DO Hospital Course - Lab Results Lab Results: Micro Results 10/17/17 11:46 Blood Blood Culture - Preliminary NO GROWTH AFTER 3 DAYS 10/17/17 12:01 Blood Blood Culture - Preliminary NO GROWTH AFTER 3 DAYS Most Recent Lab Values WBC 7.4 K/uL (4.8-10.8) 10/21/17 08:11 RBC 3.79 Mil/uL (4.40-5.90) L 10/21/17 08:11 Hgb 10.7 g/dL (12.0-18.0) L 10/21/17 08:11 Hct 31.3 % (35.0-51.0) L 10/21/17 08:11 MCV 82.6 fL (80.0-94.0) 10/21/17 08:11 MCH 28.2 pg (27.0-31.0) 10/21/17 08:11 MCHC 34.2 g/dL (33.0-37.0) 10/21/17 08:11 RDW 14.2 % (11.5-14.5) 10/21/17 08:11 Plt Count 66 K/uL (130-400) L 10/21/17 08:11 MPV 9.5 fL (7.2-11.7) 10/21/17 08:11 Neut % (Auto) 64.5 % (50.0-75.0) 10/21/17 08:11 Lymph % (Auto) 21.6 % (20.0-40.0) 10/21/17 08:11 [place] % (Auto) 10.6 % (0.0-10.0) H 10/21/17 08:11 Eos % (Auto) 2.8 % (0.0-4.0) 10/21/17 08:11 Baso % (Auto) 0.5 % (0.0-2.0) 10/21/17 08:11 Neut # (Auto) 4.8 K/uL (1.8-7.0) 10/21/17 08:11 Lymph # (Auto) 1.6 K/uL (1.0-4.3) 10/21/17 08:11 [place] # (Auto) 0.8 K/uL (0.0-0.8) 10/21/17 08:11 Eos # (Auto) 0.2 K/uL (0.0-0.7) 10/21/17 08:11 Baso # (Auto) 0.0 K/uL (0.0-0.2) 10/21/17 08:11 Neutrophils % (Manual) 88 % (50-75) H 10/20/17 08:48 Lymphocytes % (Manual) 8 % (20-40) L 10/20/17 08:48 Monocytes % (Manual) 4 % (0-10) 10/20/17 08:48 Differential Comment 10/19/17 08:45 Toxic Granulation Present 10/20/17 08:48 Platelet Estimate Decreased (NORMAL) L 10/20/17 08:48 Polychromasia Slight 10/20/17 08:48 Hypochromasia (manual) Slight 10/20/17 08:48 Anisocytosis (manual) Slight 10/20/17 08:48 PT 15.7 SECONDS (9.7-12.2) H 10/21/17 08:11 INR 1.4 10/21/17 08:11 Plt Function Assay 48 K/uL 10/18/17 07:01 Sodium 138 mmol/L (132-148) 10/21/17 08:11 Potassium 3.6 mmol/L (3.6-5.2) 10/21/17 08:11 Chloride 99 mmol/L (98-107) 10/21/17 08:11 Carbon Dioxide 27 mmol/L (22-30) 10/21/17 08:11 Anion Gap 15 (10-20) 10/21/17 08:11 BUN 5 mg/dL (9-20) L 10/21/17 08:11 Creatinine 0.7 mg/dL (0.8-1.5) L 10/21/17 08:11 Est GFR ( Amer) > 60 10/21/17 08:11 Est GFR (Non-Af Amer) > 60 10/21/17 08:11 POC Glucose (mg/dL) 104 mg/dL (65-110) 10/16/17 05:15 Random Glucose 141 mg/dL (75-110) H 10/21/17 08:11 Lactic Acid 0.8 mmol/L (0.7-2.1) 10/16/17 05:52 Calcium 7.7 mg/dl (8.6-10.4) L 10/21/17 08:11 Total Bilirubin 1.0 mg/dL (0.2-1.3) 10/21/17 08:11 AST 111 U/L (17-59) H D 10/21/17 08:11 ALT 74 U/L (21-72) H 10/21/17 08:11 Alkaline Phosphatase 65 U/L (38-126) 10/21/17 08:11 Total Protein 6.9 g/dL (6.3-8.3) 10/21/17 08:11 Albumin 3.0 g/dL (3.5-5.0) L 10/21/17 08:11 Globulin 3.9 gm/dL (2.2-3.9) 10/21/17 08:11 Albumin/Globulin Ratio 0.8 (1.0-2.1) L 10/21/17 08:11 Lipase 173 U/L (23-300) 10/16/17 05:41 Urine Color Yellow (YELLOW) 10/16/17 10:15 Urine Clarity Clear (Clear) 10/16/17 10:15 Urine pH 5.0 (5.0-8.0) 10/16/17 10:15 Ur Specific [place] 1.010 (1.003-1.030) 10/16/17 10:15 Urine Protein Negative mg/dL (NEGATIVE) 10/16/17 10:15 Urine Glucose (UA) Normal mg/dL (Normal) 10/16/17 10:15 Urine Ketones Negative mg/dL (NEGATIVE) 10/16/17 10:15 Urine Blood 1+ (NEGATIVE) H 10/16/17 10:15 Urine Nitrate Negative (NEGATIVE) 10/16/17 10:15 Urine Bilirubin Negative (NEGATIVE) 10/16/17 10:15 Urine Urobilinogen Normal mg/dL (0.2-1.0) 10/16/17 10:15 Ur Leukocyte Esterase Neg [place]/uL (Negative) 10/16/17 10:15 Urine WBC (Auto) 1 /hpf (0-5) 10/16/17 10:15 Urine RBC (Auto) < 1 /hpf (0-3) 10/16/17 10:15 Stool Occult Blood Negative (NEGATIVE) 10/17/17 15:40 Influenza Typ A,B (EIA) Negative for flu a/b (NEGATIVE) 10/16/17 14:05 Blood Type B POSITIVE 10/17/17 16:52 Antibody Screen Negative 10/17/17 16:52 Attending/Attestation - Attestation I have personally seen and examined this patient.: Yes I have fully participated in the care of the patient.: Yes I have reviewed all pertinent clinical information, including history, physical exam and plan: Yes Notes (Text): 10/21/17 11:55 Medical attending: Patient was seen and examined by me. Agree with the above note by the resident On exam we also had the patient stand and walk with us - he was able to do so without assistance. Also on exam the area of the laprscopic cholesectomy are dry and clean, no discharge or erethema seen this morning He reported still haivng some abdominal pain following the surgery - however much less than before He is tolerating diet as well So will discharge patient today to home He will need to follow up with the hospital clinic as well as with GI He needs to take several more day course of PO abx Also needs to continue his previous medications including his Isoniazid. LFTs are stable for the time being thank you Trevor Harmon
[2017-10-21] MEDS ORDERED: Pneumococcal 23-Valent Vaccine IM ONE (13:00)
== END 2017-10-21 14:22 | disposition home or self-care (01) | DRG 493 ==
LOC: C.ER 05:07 → C.9E 10:54 → C.5S 12:17
PROVIDERS: ADMIT Hospitalist; ATTEND Hospitalist
PROC: 0WQF4ZZ Repair Abdominal Wall, Percutaneous Endoscopic Approach (ICD-10-PCS; 2017-10-19)
PROC: BF131ZZ Fluoroscopy of Gallbladder and Bile Ducts using Low Osmolar Contrast (ICD-10-PCS; 2017-10-19)
PROC: 0FT44ZZ Resection of Gallbladder, Percutaneous Endoscopic Approach (ICD-10-PCS; principal; 2017-10-19 09:00)
DX: K80.00 Calculus of gallbladder with acute cholecystitis without obstruction (principal); K74.60 Unspecified cirrhosis of liver; B19.20 Unspecified viral hepatitis C without hepatic coma; D69.6 Thrombocytopenia, unspecified; K42.9 Umbilical hernia without obstruction or gangrene; D64.9 Anemia, unspecified; I85.10 Secondary esophageal varices without bleeding; I86.4 Gastric varices; K21.0 Gastro-esophageal reflux disease with esophagitis; K27.9 Peptic ulcer, site unspecified, unspecified as acute or chronic, without hemorrhage or perforation; K29.70 Gastritis, unspecified, without bleeding; K80.10 Calculus of gallbladder with chronic cholecystitis without obstruction; R50.82 Postprocedural fever; R76.11 Nonspecific reaction to tuberculin skin test without active tuberculosis; D50.9 Iron deficiency anemia, unspecified

== ENCOUNTER 2017-11-21 12:44 | Emergency (ER) | payer OTHER ==
[2017-11-21 12:44] VITALS: BMI 23.6
[2017-11-21 12:49] VITALS: TEMP 98.2
--- NOTE | 2017-11-21 13:14 | C.PDOC ---
History Of Present Illness 62 year old male, whose PMHx includes Tuberculosis (on medication) and Hepatitis C, is sent to the ED by Dr. Trevino for evaluation of chest pain which has been intermittent for 3 weeks. Patient states he underwent gallbladder surgery by Dr. Sigala 3 weeks ago, and his symptoms began shortly after. Patient is accompanied by his son at bedside. He denies fever, chills, shortness of breath, nausea, vomiting, extremity/weakness. Time Seen by Provider: 11/21/17 13:00 Chief Complaint (Nursing): Chest Pain History Per: Patient, Family (son ) History/Exam Limitations: no limitations Onset/Duration Of Symptoms: Intermittent Episodes, Other (3 weeks ) Current Symptoms Are (Timing): Still Present Quality: "Pain" Associated Symptoms: denies: Nausea Additional History Per: Patient Past Medical History Reviewed: Historical Data, Nursing Documentation, Vital Signs Vital Signs: Last Vital Signs Temp 98.2 F 11/21/17 12:47 Pulse 64 11/21/17 14:37 Resp 18 11/21/17 14:37 BP 111/63 11/21/17 14:37 Pulse Ox 99 11/21/17 15:05 - Medical History PMH: GERD, Hepatitis (C) Denies: Colonic Polyps, Fractures, Seizures, TIA Other PMH: tuberculosis Surgical History: No Surg Hx Denies: Endoscopy - [facility] Procedures FLUOROSCOPY OF GALLBLADDER & BILE DUCT USING L OSM CONTRAST (10/16/17) REPAIR ABDOMINAL WALL, PERCUTANEOUS ENDOSCOPIC APPROACH (10/16/17) RESECTION OF GALLBLADDER, PERCUTANEOUS ENDOSCOPIC APPROACH (10/16/17) Family History: States: Unknown Family Hx - Social History Hx Alcohol Use: No Hx Substance Use: No - Immunization History Hx Tetanus Toxoid Vaccination: No Hx Influenza Vaccination: No Hx Pneumococcal Vaccination: No Review Of Systems Constitutional: Negative for: Fever, Chills Cardiovascular: Positive for: Chest Pain Respiratory: Negative for: Shortness of Breath Gastrointestinal: Negative for: Nausea, Vomiting Neurological: Negative for: Weakness, Numbness Physical Exam - Physical Exam Appears: Non-toxic, No Acute Distress Skin: Normal Color, Warm, Dry Head: Atraumatic, Normacephalic Eye(s): bilateral: Normal Inspection Oral Mucosa: Moist Neck: Supple Chest: Symmetrical, No Deformity, Tenderness (mild, chest wall ) Cardiovascular: Rhythm Regular, No Murmur Respiratory: Normal Breath Sounds, No Rales, No Rhonchi, No Wheezing Gastrointestinal/Abdominal: Soft, Tenderness (mild, around gallbladder removal site ), No Guarding, No Rebound Extremity: Normal ROM, Capillary Refill (less than 2 seconds ) Neurological/Psych: Oriented x3, Normal Speech, Normal Cognition ED Course And Treatment - Laboratory Results Result Diagrams: 11/21/17 13:24 11/21/17 13:24 Lab Interpretation: Normal ECG: Interpreted By Me ECG Rhythm: Sinus Rhythm ECG Interpretation: Normal Rate From EC O2 Sat by Pulse Oximetry: 99 (on RA) Pulse Ox Interpretation: Normal - Radiology CXR: Interpreted by Me CXR Interpretation: Yes: No Acute Disease Progress Note: Bloodwork, urinalysis, CXR, and EKG ordered and reviewed. On re- evaluation lungs clear, in no distress Reassessment Condition: Unchanged Medical Decision Making Medical Decision Making: Patient reports cholecystectomy 3 weeks ago and developed chest pain. Patient denies SOB, fever or vomiting. On exam mild anterior chest wall tenderness Discharged in stable condition Disposition Counseled Patient/Family Regarding: Studies Performed, Diagnosis, Need For Followup - Disposition Referrals: Blanka Trevino MD [Staff Provider] - Disposition: HOME/ ROUTINE Disposition Time: 15:30 Condition: STABLE Additional Instructions: Follow up at clinic for further evaluation Instructions: Chest Pain (DC) Forms: [facility] (Thai) - POA Present On Arrival: None - Clinical Impression Clinical Impression: Chest pain - PA / HOME HEALTH CAREGIVER / Resident Statement MD/DO has reviewed & agrees with the documentation as recorded. - Scribe Statement The provider has reviewed the documentation as recorded by the Scribe (Rose Marie See) All medical record entries made by the Scribe were at my direction and personally dictated by me. I have reviewed the chart and agree that the record accurately reflects my personal performance of the history, physical exam, medical decision making, and the department course for this patient. I have also personally directed, reviewed, and agree with the discharge instructions and disposition.
[2017-11-21 13:27] LABS: BASO # 0.1 K/uL (0.0-0.2); BASO % 1.2 % (0.0-2.0); EOS # 0.3 K/uL (0.0-0.7); EOS % 7.9 % (0.0-4.0); LYMPH # 1.6 K/uL (1.0-4.3); LYMPH % 37.3 % (20.0-40.0); MEAN CELL VOLUME 82.8 fL (80.0-94.0); MEAN CORPUSCULAR HGB CONC 33.8 g/dL (33.0-37.0); MEAN PLATELET VOLUME 9.7 fL (7.2-11.7); MONO # 0.5 K/uL (0.0-0.8); MONO % 11.6 % (0.0-10.0); NEUT # 1.8 K/uL (1.8-7.0); NRBC % 0.1 % (0.0-2.0); RBC 4.27 Mil/uL (4.40-5.90); RED CELL DISTRIBUTION WIDTH 14.3 % (11.5-14.5); WHITE BLOOD COUNT 4.2 K/uL (4.8-10.8)
--- NOTE | 2017-11-21 13:36 | RAD ---
HISTORY: COMPARISON: 10/16/2017. TECHNIQUE: Chest PA and lateral FINDINGS: LINES AND TUBES: None. LUNG AND PLEURA: The lungs are well inflated and clear. No pleural effusion or pneumothorax. HEART AND MEDIASTINUM: The heart is not enlarged. The hilar and mediastinal contours are within normal limits. SKELETAL STRUCTURES: The bony structures are within normal limits for the patient's age. VISUALIZED UPPER ABDOMEN: Normal. OTHER FINDINGS: None. IMPRESSION: No active pulmonary disease.
[2017-11-21 13:49] LABS: ALB/GLOB RATIO 0.9 (1.0-2.1); ALBUMIN 3.9 g/dL (3.5-5.0); ALT/SGPT 113 U/L (21-72); AST/SGOT 154 U/L (17-59); BLOOD UREA NITROGEN 9 mg/dL (9-20); GFR AFRICAN-AMERICAN > 60; GFR NON-AFRICAN AMERICAN > 60; LIPASE 298 U/L (23-300)
[2017-11-21 14:00] LABS: CK-MB 3.43 ng/mL (0.0-3.38)
[2017-11-21 14:38] VITALS: BP 111/63; PULSE 64; RESP 18
[2017-11-21 14:58] VITALS: O2SAT 99
--- NOTE | 2017-11-22 13:52 | CARD ---
APPROVED REPORT EKG Measurement Heart [id number] <Conclusion> Normal sinus rhythm Normal ECG
--- NOTE | 2017-11-22 13:52 | CARD ---
APPROVED REPORT EKG Measurement Heart [id number] [id number] <Conclusion> Normal sinus rhythm Normal ECG
== END 2017-11-21 15:13 | disposition home or self-care (01) ==
LOC: C.ER 12:44
DX: R07.9 Chest pain, unspecified (principal)